=== PATIENT | male | born 1960 | race Caucasian/White ===

== ENCOUNTER 2022-08-24 14:50 | Observation (INO) ==
--- NOTE | 2022-08-24 15:22 | ED Triage Note ---
Date of Service August 24, 2022 History of Present Illness This patient was briefly evaluated while in triage. An abbreviated physical exam was performed. This patient is a 62-year-old Male with past medical history of hypercalcemia, DM Type 2, dyslipidemia, obesity, who presents to the ED for evaluation of generalized illness as a referral from oncology. Pt. had chemo a week ago Monday. Came home from work that day and "didn't feel good." Having difficulty getting around and c/o pain in ben legs from the knees down and his head. Physical Exam VITALS: Vitals are noted on the nurse's note and reviewed by myself. GENERAL: This is a 62 year old white male, in no acute distress, nondiaphoretic, well-developed well-nourished. SKIN: No obvious rashes, edema, erythema HEAD: Normocephalic atraumatic. EYES: Conjunctivae without injection, sclerae without icterus. NECK: No JVD. LUNGS: No retractions or accessory muscle use. MUSCULOSKELETAL: Normal gait. NEURO: Patient was alert and oriented to person place and time. No focal neurological deficits. Initial orders for labs and / or imaging were placed and patient was placed in the waiting area until a bed is available. Please see further documentation for the full ED course. MDM / Impression Impression Impression: Diverticulitis, Neutropenia, Hypokalemia
[2022-08-24] MEDS ORDERED: SODIUM CHLORIDE 0.9% 1000ML 1,000 ML IV ONE ×2 (15:24→17:14)
[2022-08-24] MEDS ORDERED: ONDANSETRON INJ 2 MG/ML 2 ML VIAL IV STA (15:24)
--- NOTE | 2022-08-24 16:39 | XRay Report ---
TWO VIEW CHEST CLINICAL HISTORY: Fatigue. Illness. FINDINGS: PA and lateral chest radiographs are compared to chest x-ray and chest CT dated 08/26/2018. A right internal jugular central venous infusion port is unchanged in position. The heart is enlarged . The pulmonary vasculature is not congested. Enlargement of the central pulmonary arteries suggests pulmonary artery hypertension. Emphysema and chronic interstitial thickening is similar to previous. Scarring/atelectasis is noted the left lung base. No airspace consolidation or pleural effusion is id entified. There is no pneumothorax. The skeletal structures are osteopenic. The bony thorax appears i ntact. Cholecystectomy clips are noted in the right upper quadrant. IMPRESSION: Cardiomegaly and emphysema with no active disease in the chest. ACT 112: Negative or not required by law. Electronically signed by: Elbert Campos M.D. 08/24/2022 4:37 PM
--- NOTE | 2022-08-24 17:17 | Emergency Department Note ---
Impression & Plan Diverticulitis, Neutropenia, Hypokalemia ED Provider Note NAME: NOAH LLANOS AGE: 62 SEX: M : 1960 ARRIVES VIA: Walk-In INFORMANT: Patient ED PROVIDER(S): Marco Ruiz DO CHIEF COMPLAINT: Elevated bilirubin sent in by Dr. Samayoa HPI: Patient is a 62-year-old male with past medical history of diabetes, prostate cancer, hyperkalemia that presents to the ER for elevated bilirubin. He had blood work done by his primary replenisher/oncologist and it showed an elevated bilirubin. He had chemo for the first time since 5 years ago last week. Since then he has been feeling very weak. He has cramping pain in bilateral legs. He did have some abdominal pain but that has now resolved. He has nausea but no vomiting. No dysuria, urgency, or frequency. He admits to feeling fuzzy in the head but no change in vision. No chest pain or shortness of breath. No other exacerbating or remitting factors. ROS: See above HPI for pertinent positives & negatives. A total of 10 systems reviewed and were otherwise negative. PAST MEDICAL HISTORY:See Below PAST SURGICAL HISTORY:See Below FAMILY HISTORY:See Below SOCIAL HISTORY:See Below HOME MEDICATIONS:See Below ALLERGIES:See Below VITALS:See Below PHYSICAL EXAMINATION: GENERAL: Sitting up in bed, alert, well appearing, well nourished, no distress, non-toxic EYE EXAM: normal conjunctiva. OROPHARYNX: mucous membranes are dry LUNGS: Clear to auscultation. Normal chest wall mechanics HEART: no murmurs, S1 normal and S2 normal ABDOMEN: abdomen soft, non-tender, normo-active bowel sounds, no masses, no rebound or guarding. BACK: Back is symmetrical on inspection and there is no deformity, no midline tenderness, no CVA tenderness. SKIN: no rashes and no bruising UPPER EXTREMITIES: upper extremities are grossly normal. LOWER EXTREMITIES: Flexion and extension of the hips, knees, ankles, and EHL 5/5 bilaterally. Gross sensation is intact. DPs are 2/4 bilateral. NEURO EXAM: Normal sensorium, cranial nerves II-XII grossly intact, normal speech, no gross weakness of arms, no gross weakness of legs. MEDICAL DECISION MAKING: Patient is a 62-year-old male who presents ER for the boasting complaint. IV was established blood work was obtained. Labs show mild leukopenia at 4. No significant anemia. Severe neutropenia at 420. Likely secondary to recent pauline mo. PTT was significantly elevated at greater than 139. He had his port accessed just prior to coming over here and I do favor that is the likely cause as he otherwise uses no Coumadin, heparin or Lovenox other than the heparin flushes. BMP with mild hyponatremia 133. Potassium of 2.9. PTT was discussed with Nathan Cardoso and will need to be repeated. T bili mildly elevated at 1.9. LFTs were unremarkable. Pro-[place] slightly elevated 0.6. UA was contaminated and favor nitrates are secondary to the bilirubin as opposed to a true infection. Patient was covered with Zosyn due to the diverticulitis seen on CT. He was given IV fluids. Updated bedside discussed with the hospitalist admitted for further work-up due to diverticulitis in the setting of severe neutropenia. Triage Nursing notes reviewed. Limited review of prior medical records performed Vital Signs: reviewed and remarkable for no significant abnormalities Differential diagnosis: Infection, dehydration, metabolic abnormality, hypo/hyperglycemia, electrolyte disturbance, anemia, hypoxia, cardiac sources, intracerebral event, toxicologic, neurologic, as well as other pathologies. ER treatment provided: See below Diagnostics interpreted by me: ECG: none Cardiac Monitoring: An order was placed for continuous cardiac monitoring. The monitor shows a rate of 70 with sinus rhythm. Laboratory studies: As stated above and show below. Imaging studies: CT abdomen pelvis as described above Consultation(s): Discussed with Dr. Nathan Jernigan for further evaluation Procedures: none Critical Care: None Past Med/Surg History Medical History (Updated 08/24/22 @ 21:48 by Marco Ruiz DO) Hypertension Port-A-Cath in place Prostate cancer Prostate cancer Stage 4 prostate cancer, s/p radiation and chemo Surgical History (Updated 08/28/18 @ 12:04 by Mayelin Garcia MD) History of lumbar surgery Family History Other Family history non-contributory Social History Smoking Status: Never smoker Cigarettes Per Day: Experimented at teenager then quit.; Second Hand Exposure: No; Hx Alcohol Use: Yes Alcohol type: beer Hx Substance Use: No Preferred Language: Chinese Communication Ability: Effective Chief Deputy Coroner Required: No Beliefs That Will Affect Care: None marital status: Current Living Situation: Spouse Feels Safe at Home: Yes Assistive Devices: None Allergies Allergies Allergy/AdvReac Type Severity Reaction Status Date / Time No Known Allergies Allergy Unverified 08/24/22 20:08 Home Meds Home Medications Medication Instructions Recorded Confirmed aspirin 81 mg tablet,delayed 81 mg PO DAILY 08/26/18 08/24/22 release (Ecotrin Low Strength) atenolol 25 mg tablet 25 mg PO DAILY 08/26/18 08/24/22 tamsulosin 0.4 mg capsule (Flomax) 0.4 mg PO DAILY 08/27/18 08/24/22 almotriptan malate 12.5 mg tablet 12.5 mg PO .COMPLEX PRN Migraine 08/01/19 08/24/22 Headache blood-glucose meter (Accu-Chek #1 ea 08/01/19 06/06/22 Guide Glucose Meter) hydrochlorothiazide 50 mg tablet 50 mg PO DAILY #30 tabs 08/01/19 08/24/22 lancets (Accu-Chek Fastclix Lancet #50 ea 03/22/21 06/06/22 Drum) blood sugar diagnostic (Accu-Chek 06/06/22 Guide test strips) acetaminophen 325 mg tablet 650 mg PO QID PRN Fever Or Pain 08/24/22 08/24/22 (Tylenol) dexamethasone 4 mg tablet 8 mg PO .BID/UD 08/24/22 08/24/22 insulin glargine 100 unit/mL (3 40 unit subcut TIDM 08/24/22 08/24/22 mL) subcutaneous pen (Giuseppeaglar KwcristinaPen U-100 Insulin) metformin 1,000 mg tablet 1,000 mg PO BIDM 08/24/22 08/24/22 ondansetron HCl 8 mg tablet 8 mg PO Q8H PRN Nausea 08/24/22 08/24/22 prochlorperazine maleate 10 mg 10 mg PO Q6H PRN Nausea 08/24/22 08/24/22 tablet tramadol 50 mg tablet 50 mg PO Q6H PRN Pain 08/24/22 08/24/22 Previous Rx's Medication Instructions Recorded BD Ultra-Fine Mini Pen Needle 31 #400 ea 09/21/20 gauge x 3/16" (pen needle, diabetic) semaglutide 0.25 mg or 0.5 mg (2 0.5 mg (0.4 mL) subcut Q7D #3 01/24/22 mg/1.5 mL) subcutaneous pen SYRINGES injector (Ozempic) insulin aspart U-100 100 unit/mL 140 unit (1.4 mL) subcut DAILY #9 06/10/22 (3 mL) subcutaneous pen (Novolog Boxes Flexpen U-100 Insulin aspart) Results & Data (ED) Vital Signs Vital Signs - 24 hr 08/24/22 15:21 08/24/22 16:54 08/24/22 16:54 Temperature 36.8 C Temperature Source Oral Pulse Rate 83 Pulse Rate [Apical] 84 Respiratory Rate 20 16 Respiratory Effort / Characteristics Non-Labored Spontaneous Non-Labored Spontaneous Respiratory Depth Normal Normal Respiratory Pattern Regular Blood Pressure 106/54 L Blood Pressure [Right Arm] 109/58 L Blood Pressure Mean 71 Blood Pressure Mean [Right Arm] 75 Pulse Oximetry 93 93 93 Oxygen Delivery Method Room Air Room Air Room Air Sepsis Recent Fever Within 48 Hours No Sepsis New/Unexplained Change in Mental Status N/A Sepsis Action Taken by Nursing No Action Required 08/24/22 17:47 08/24/22 18:44 08/24/22 19:01 Temperature 37 C Temperature Source Oral Pulse Rate Pulse Rate [Apical] 78 72 73 Respiratory Rate 18 16 18 Respiratory Effort / Characteristics Non-Labored Spontaneous Non-Labored Respiratory Depth Normal Normal Respiratory Pattern Regular Blood Pressure Blood Pressure [Right Arm] 122/65 110/62 96/59 L Blood Pressure Mean Blood Pressure Mean [Right Arm] 84 78 71 Pulse Oximetry 94 93 93 Oxygen Delivery Method Room Air Room Air Room Air Sepsis Recent Fever Within 48 Hours Sepsis New/Unexplained Change in Mental Status Sepsis Action Taken by Nursing Laboratory Data Result diagrams: 08/24/22 16:52 08/24/22 16:52 Lab Results 08/24/22 08/24/22 08/24/22 Range/Units 16:52 16:52 16:52 WBC 4.23 L (4.8-10.8) K/ul RBC 4.06 L (4.63-6.08) M/uL Hgb 13.9 L (14.0-18.0) g/dl Hct 37.0 L (40.1-51.0) % MCV 91.1 (80.0-100.0) fL MCH 34.2 H (25.0-34.0) pg MCHC 37.6 H (32.0-36.0) g/dL RDW Std Deviation 40.5 (36.4-46.3) fL RDW Coeff of Osvaldo 12.1 (11.5-14.5) % Plt Count 183 (130-400) K/uL MPV 12.7 H (9.4-12.4) fL Absolute Nucleated RBC 0.19 H (0-0) K/uL Nucleated RBC % (auto) 4.5 % Neutrophils % (Manual) 10 % Lymphocytes % (Manual) 33 % Reactive Lymphs % (Man) 18 % Monocytes % (Manual) 32 % Eosinophils % (Manual) 1 % Metamyelocytes % (Man) 3 % Myelocytes % (Man) 4 % Neutrophils # (Manual) 0.42 L (1.4-6.5) K/uL Total Absolute Neuts 0.42 L* (1.4-6.5) K/uL Lymphocytes # (Manual) 1.40 (1.2-3.4) K/uL Reactive Lymphs # 0.76 K/uL Total Abs Lymphocytes 2.16 (1.2-3.4) K/uL Monocytes # (Manual) 1.35 H (0.24-0.82) K/uL Eosinophils # (Manual) 0.04 (0-0.50) K/uL Metamyelocytes # (Man) 0.13 H (0-0) K/uL Myelocytes # (Manual) 0.17 H (0-0) K/uL Polychromasia 1+ PT 13.3 H (9.0-12.0) Seconds INR 1.3 H (0.9-1.1) APTT > 139.0 H* (21.0-31.0) Seconds PTT Ratio > 5.1 Sodium 133 L (136-145) mmol/L Potassium 2.9 L (3.5-5.1) mmol/L Chloride 97 L (98-107) mmol/L Carbon Dioxide 25 (21-32) mmol/L Anion Gap 11 (3-11) BUN 15 (6-23) mg/dl Creatinine 1.02 (0.6-1.4) mg/dl Est Cr Clr Drug Dosing 91.1 ml/min Est GFR ( Amer) 91.5 ml/min Est GFR (Non-Af Amer) 79.0 ml/min BUN/Creatinine Ratio 14.7 (10-20) Glucose 95 (70-99(Fasting)) mg/dl Lactate (0.4-2.0) mmol/L Calcium 8.0 L (8.5-10.1) mg/dl Magnesium 2.1 (1.7-2.4) mg/dl Total Bilirubin 1.9 H (0.2-1.0) mg/dl AST 17 (13-39) U/L ALT 15 (7-52) U/L Alkaline Phosphatase 56 (34-104) U/L Troponin I High Sens 4.5 (0-20) pg/ml Total Protein 7.3 (6.0-8.3) gm/dl Albumin 3.8 (3.4-5.0) gm/dl Globulin 3.5 (2.5-4.0) gm/dl Albumin/Globulin Ratio 1.1 (0.9-2) Lipase 18 (11-82) U/L Procalcitonin (0-0.5) ng/ml Urine Color Urine Appearance (Clear) Urine pH (4.5-7.5) Ur Specific [place] (1.000-1.030) Urine Protein (Negative) Urine Glucose (UA) (Negative) Urine Ketones (Negative) Urine Blood (Negative) Urine Nitrite (Negative) Urine Bilirubin (Negative) Urine Urobilinogen (Negative) Ur Leukocyte Esterase (Negative) Urine WBC (Auto) (0-5) /hpf Urine RBC (Auto) (0-4) /hpf U Hyaline Cast (Auto) (0-5) /lpf U Epithel Cells (Auto) (0-5) /lpf Urine Bacteria (Auto) (Negative) Ur Renal Epithelial Cell SARS-CoV-2, RNA, NAAT (NEGATIVE) 08/24/22 08/24/22 08/24/22 Range/Units 16:52 17:48 19:00 WBC (4.8-10.8) K/ul RBC (4.63-6.08) M/uL Hgb (14.0-18.0) g/dl Hct (40.1-51.0) % MCV (80.0-100.0) fL MCH (25.0-34.0) pg MCHC (32.0-36.0) g/dL RDW Std Deviation (36.4-46.3) fL RDW Coeff of Osvaldo (11.5-14.5) % Plt Count (130-400) K/uL MPV (9.4-12.4) fL Absolute Nucleated RBC (0-0) K/uL Nucleated RBC % (auto) % Neutrophils % (Manual) % Lymphocytes % (Manual) % Reactive Lymphs % (Man) % Monocytes % (Manual) % Eosinophils % (Manual) % Metamyelocytes % (Man) % Myelocytes % (Man) % Neutrophils # (Manual) (1.4-6.5) K/uL Total Absolute Neuts (1.4-6.5) K/uL Lymphocytes # (Manual) (1.2-3.4) K/uL Reactive Lymphs # K/uL Total Abs Lymphocytes (1.2-3.4) K/uL Monocytes # (Manual) (0.24-0.82) K/uL Eosinophils # (Manual) (0-0.50) K/uL Metamyelocytes # (Man) (0-0) K/uL Myelocytes # (Manual) (0-0) K/uL Polychromasia PT (9.0-12.0) Seconds INR (0.9-1.1) APTT (21.0-31.0) Seconds PTT Ratio Sodium (136-145) mmol/L Potassium (3.5-5.1) mmol/L Chloride (98-107) mmol/L Carbon Dioxide (21-32) mmol/L Anion Gap (3-11) BUN (6-23) mg/dl Creatinine (0.6-1.4) mg/dl Est Cr Clr Drug Dosing ml/min Est GFR ( Amer) ml/min Est GFR (Non-Af Amer) ml/min BUN/Creatinine Ratio (10-20) Glucose (70-99(Fasting)) mg/dl Lactate (0.4-2.0) mmol/L Calcium (8.5-10.1) mg/dl Magnesium (1.7-2.4) mg/dl Total Bilirubin (0.2-1.0) mg/dl AST (13-39) U/L ALT (7-52) U/L Alkaline Phosphatase (34-104) U/L Troponin I High Sens (0-20) pg/ml Total Protein (6.0-8.3) gm/dl Albumin (3.4-5.0) gm/dl Globulin (2.5-4.0) gm/dl Albumin/Globulin Ratio (0.9-2) Lipase (11-82) U/L Procalcitonin 0.60 H (0-0.5) ng/ml Urine Color [place] Urine Appearance Clear (Clear) Urine pH 6.5 (4.5-7.5) Ur Specific [place] 1.030 (1.000-1.030) Urine Protein 1+ H (Negative) Urine Glucose (UA) Negative (Negative) Urine Ketones Trace H (Negative) Urine Blood Negative (Negative) Urine Nitrite Positive A (Negative) Urine Bilirubin 1+ H (Negative) Urine Urobilinogen Negative (Negative) Ur Leukocyte Esterase Trace H (Negative) Urine WBC (Auto) 1-5 (0-5) /hpf Urine RBC (Auto) 5-10 H (0-4) /hpf U Hyaline Cast (Auto) 10-30 H (0-5) /lpf U Epithel Cells (Auto) >30 H (0-5) /lpf Urine Bacteria (Auto) Negative (Negative) Ur Renal Epithelial Cell Not Reportable SARS-CoV-2, RNA, NAAT NEGATIVE (NEGATIVE) 08/24/22 Range/Units 21:13 WBC (4.8-10.8) K/ul RBC (4.63-6.08) M/uL Hgb (14.0-18.0) g/dl Hct (40.1-51.0) % MCV (80.0-100.0) fL MCH (25.0-34.0) pg MCHC (32.0-36.0) g/dL RDW Std Deviation (36.4-46.3) fL RDW Coeff of Osvaldo (11.5-14.5) % Plt Count (130-400) K/uL MPV (9.4-12.4) fL Absolute Nucleated RBC (0-0) K/uL Nucleated RBC % (auto) % Neutrophils % (Manual) % Lymphocytes % (Manual) % Reactive Lymphs % (Man) % Monocytes % (Manual) % Eosinophils % (Manual) % Metamyelocytes % (Man) % Myelocytes % (Man) % Neutrophils # (Manual) (1.4-6.5) K/uL Total Absolute Neuts (1.4-6.5) K/uL Lymphocytes # (Manual) (1.2-3.4) K/uL Reactive Lymphs # K/uL Total Abs Lymphocytes (1.2-3.4) K/uL Monocytes # (Manual) (0.24-0.82) K/uL Eosinophils # (Manual) (0-0.50) K/uL Metamyelocytes # (Man) (0-0) K/uL Myelocytes # (Manual) (0-0) K/uL Polychromasia PT (9.0-12.0) Seconds INR (0.9-1.1) APTT (21.0-31.0) Seconds PTT Ratio Sodium (136-145) mmol/L Potassium (3.5-5.1) mmol/L Chloride (98-107) mmol/L Carbon Dioxide (21-32) mmol/L Anion Gap (3-11) BUN (6-23) mg/dl Creatinine (0.6-1.4) mg/dl Est Cr Clr Drug Dosing ml/min Est GFR ( Amer) ml/min Est GFR (Non-Af Amer) ml/min BUN/Creatinine Ratio (10-20) Glucose (70-99(Fasting)) mg/dl Lactate 2.1 H* (0.4-2.0) mmol/L Calcium (8.5-10.1) mg/dl Magnesium (1.7-2.4) mg/dl Total Bilirubin (0.2-1.0) mg/dl AST (13-39) U/L ALT (7-52) U/L Alkaline Phosphatase (34-104) U/L Troponin I High Sens (0-20) pg/ml Total Protein (6.0-8.3) gm/dl Albumin (3.4-5.0) gm/dl Globulin (2.5-4.0) gm/dl Albumin/Globulin Ratio (0.9-2) Lipase (11-82) U/L Procalcitonin (0-0.5) ng/ml Urine Color Urine Appearance (Clear) Urine pH (4.5-7.5) Ur Specific [place] (1.000-1.030) Urine Protein (Negative) Urine Glucose (UA) (Negative) Urine Ketones (Negative) Urine Blood (Negative) Urine Nitrite (Negative) Urine Bilirubin (Negative) Urine Urobilinogen (Negative) Ur Leukocyte Esterase (Negative) Urine WBC (Auto) (0-5) /hpf Urine RBC (Auto) (0-4) /hpf U Hyaline Cast (Auto) (0-5) /lpf U Epithel Cells (Auto) (0-5) /lpf Urine Bacteria (Auto) (Negative) Ur Renal Epithelial Cell SARS-CoV-2, RNA, NAAT (NEGATIVE) Administered Medications Discontinued Medications Sodium Chloride (Nss 1000ml) 1,000 mls @ 999 mls/hr IV .Q1H1M ONE Stop: 08/24/22 16:24 Last Infusion: 08/24/22 18:14 Dose: 0 mls/hr Documented By: Admin: 08/24/22 16:55 Dose: 999 mls/hr Documented By: CRUZ Sodium Chloride (Nss 1000ml) 1,000 mls @ 999 mls/hr IV .Q1H1M ONE Stop: 08/24/22 18:14 Last Infusion: 08/24/22 20:03 Dose: 0 mls/hr Documented By: Admin: 08/24/22 18:14 Dose: 999 mls/hr Documented By: CRUZ Piperacillin Sod/Tazobactam Sod (Zosyn) 4.5 gm in 120 mls @ 240 mls/hr IV NOW ONE Stop: 08/24/22 19:18 Last Infusion: 08/24/22 20:03 Dose: 0 mls/hr Documented By: Admin: 08/24/22 19:00 Dose: 240 mls/hr Documented By: KT Albumin Human (Albumin 25% 100 Ml) 25 gm in 100 mls @ 50 mls/hr IV ONE ONE Stop: 08/24/22 21:26 Last Admin: 08/24/22 20:37 Dose: 50 mls/hr Documented By: VINICIO Ioversol (Ioversol 350 Mg 100ml Prefilled Syringe) 95 ml IV ONCE ONE Stop: 08/24/22 18:11 Last Admin: 08/24/22 18:10 Dose: 95 ml Documented By: ELMA Ondansetron HCl (Ondansetron Inj 2 Mg/Ml 2 Ml Vial) 4 mg IV NOW STA Stop: 08/24/22 15:25 Last Admin: 08/24/22 16:55 Dose: 4 mg Documented By: CRUZ Potassium Chloride (Potassium Chloride Crtab 20 Meq Tabcr) 40 meq PO NOW STA Stop: 08/24/22 19:28 Last Admin: 08/24/22 20:36 Dose: 40 meq Documented By: KT Imaging Data Radiologist's Impression: Chest X-Ray 08/24/22 15:23 TWO VIEW CHEST CLINICAL HISTORY: Fatigue. Illness. FINDINGS: PA and lateral chest radiographs are compared to chest x-ray and chest CT dated 08/26/2018. A right internal jugular central venous infusion port is unchanged in position. The heart is enlarged. The pulmonary vasculature is not congested. Enlargement of the central pulmonary arteries suggests pulmonary artery hypertension. Emphysema and chronic interstitial thickening is similar to previous. Scarring/atelectasis is noted the left lung base. No airspace consolidation or pleural effusion is identified. There is no pneumothorax. The skeletal structures are osteopenic. The bony thorax appears intact. Cholecystectomy clips are noted in the right upper quadrant. IMPRESSION: Cardiomegaly and emphysema with no active disease in the chest. ACT 112: Negative or not required by law. Electronically signed by: Elbert Campos M.D. 08/24/2022 4:37 PM Abdomen/Pelvis CT 08/24/22 17:14 CT SCAN OF THE ABDOMEN AND PELVIS WITH IV CONTRAST CLINICAL HISTORY: Elevated bilirubin. Prostate cancer. COMPARISON STUDY: MRCP dated 08/27/2018. Abdominal radiographs dated 08/26/2018. TECHNIQUE: Following the IV administration of 95 cc of Optiray 350, CT scan of the abdomen and pelvis is performed from the lung bases to the proximal femora. Images are reviewed in the axial, sagittal, and coronal planes. IV contrast was administered without complication. A dose lowering technique was utilized adhering to the principles of ALARA. CT DOSE: 2294.66 mGy.cm FINDINGS: Lung bases: The tip of a central venous infusion port terminates at the cavoatrial junction. The heart is normal in size and without pericardial effusion. The lung bases are clear noting dependent atelectasis. Gynecomastia is noted. Liver: The contrast-enhanced liver is mildly enlarged measuring 19 cm in length. The liver demonstrates diffusely diminished attenuation indicating hepatic steatosis. There is no intrahepatic biliary ductal dilatation. The hepatic veins and portal veins are patent. A 2.5 cm cyst is noted in the left lobe. Additional subcentimeter hepatic hypodensities also likely represent cysts but are too small for definitive characterization. Gallbladder: Surgically absent noting clips in the gallbladder fossa. Spleen: The spleen is mildly enlarged measuring 15.8 cm in length. The splenic vein is patent. There are perigastric and perisplenic varices with evidence of a splenorenal shunt. Pancreas: Unremarkable. Adrenal glands: Unremarkable. Kidneys: The contrast enhanced kidneys are normal in size and without hydronephrosis. The kidneys enhance symmetrically. Abdominal vasculature: The abdominal aorta is normal in course and caliber noting scattered foci of atherosclerotic calcification. Bowel: There is mild to moderate colonic diverticulosis. There is wall thickening with pericolonic inflammation and fluid seen involving the proximal sigmoid. This is consistent with acute diverticulitis. No organized fluid collection is seen to suggest abscess. There is no bowel obstruction. The appendix is well-visualized and normal. Peritoneum: There is no intraperitoneal free air or abdominal ascites. There is a fat-containing umbilical hernia. Lymphadenopathy: There are prominent low attenuation and calcified bilateral iliac chain/pelvic sidewall lymph nodes. A node along the right pelvic sidewall on image #459 measures 2.3 x 1.2 cm. A left external iliac chain node on image # 444 measures 1.5 cm. Pelvic viscera: The prostate gland is diminutive an heterogeneous. The bladder is decompressed comment wall appears thickened/trabeculated indicating chronic outlet obstruction. The seminal vesicles are normal as visualized. 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 Lesions are seen within the left anterior 6th rib on image #79 and throughout the lumbar spine, pelvis, and in the proximal femora. There is a chronic superior endplate compression deformity of L4. Spondylotic and po stoperative change is seen throughout The lumbar spine. IMPRESSION: 1. Mild to moderate colonic diverticulosis with evidence of acute sigmoid diverticulitis. 2. No intraperitoneal free air is identified and there is no organized fluid collection to suggest abscess. 3. Hepatic steatosis. 4. 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 5. Splenomegaly. 6. Mildly enlarged pelvic sidewall and iliac chain lymph nodes show low- attenuation and internal calcifications. These may represent treated metastases. Correlate with the patient's oncological history. 7. There are perigastric and perisplenic varices with evidence of a splenorenal shunt. 8. Additional findings as above. ACT 112: Negative or not required by law. Electronically signed by: Elbert Campos M.D. 08/24/2022 6:[address] 08/24/22 17:14 CT SCAN OF THE BRAIN WITHOUT IV CONTRAST CLINICAL HISTORY: Headache. COMPARISON STUDY: No priors. TECHNIQUE: Unenhanced axial CT scan of the brain is performed from the vertex to the skull base. A dose lowering technique was utilized adhering to the principles of ALARA. FINDINGS: Brain parenchyma: There is age-related involutional change noting minimal microangiopathic disease. There is no hemorrhage, mass effect, or evidence of acute territorial ischemia by CT criteria. Ramirez-white matter differentiation is preserved. No extra-axial fluid collection is seen. Ventricles, sulci, cisterns: Prominent secondary to involutional change. Intracranial vasculature: There is atherosclerotic calcification of the cavernous carotid and vertebral arteries. Calvarium: Unremarkable. Sinuses and mastoids: There is mild mucosal thickening within the left maxillary antrum and the ethmoid sinuses. Fluid is seen within the sphenoid sinuses. There are small mastoid effusions. Orbits: The bony orbits are grossly intact. IMPRESSION: No acute intracranial abnormality. ACT 112: Negative or not required by law. Electronically signed by: Elbert Campos M.D. 08/24/2022 6:17 PM Discharge Plan Visit Data Chief Complaint: Referred by Doctor Stated Complaint: PAIN, NO APPETITE, DR. SAMAYOA SENT ED Provider: Marco Ruiz Discharge Problem: Diverticulitis, Neutropenia, Hypokalemia Forms Stand Alone Forms: [facility] [employer] [place] Prescriptions Prescriptions: No Action insulin aspart U-100 [Novolog Flexpen U-100 Insulin] 100 unit/mL (3 mL) insuli n pen 140 unit SQ DAILY Qty: 9 3RF Rx Instructions: INJECT 50 UNITS UNDER THE SKIN, TWO TIMES DAILY WITH MORNING AND EVENING MEALS. INJECT 70 UNITSWITH EACH DEXAMETHASONE DOSE ( TWICE DAILY FOR THREE DAYS WITH CHEMO). (DME) blood-glucose meter [Accu-Chek Guide Glucose Meter] misc See Dose Instructions .ROUTE .MEDSUPPLY Qty: 1 Rx Instructions: As directed almotriptan malate 12.5 mg tablet 12.5 mg PO .COMPLEX PRN (Reason: Migraine Headache) Label Comments: 12.5 mg PO Take at onset of migraine. May repeat in 2 hours. MAX 2 DOSES/24 HOURS/ NO MORE THEN 3 DAYS PER WEEK; Rx Instructions: 12.5 mg PO Take at onset of migraine. May repeat in 2 hours. MAX 2 DOSES/24 HOURS/ NO MORE THEN 3 DAYS PER WEEK; hydrochlorothiazide 50 mg tablet 50 mg PO DAILY Qty: 30 (DME) lancets [Accu-Chek Fastclix Lancet Drum] Misc See Rx Instructions .ROUTE .MEDSUPPLY Qty: 50 Rx Instructions: Test blood sugars 4 times a day Ozempic 0.25 mg or 0.5 mg(2 mg/1.5 mL) pen injector 0.5 mg subcut Q7D Qty: 3 3RF Rx Instructions: TAKE THIS MED EVERY MONDAY. (DME) pen needle, diabetic [BD Ultra-Fine Mini Pen Needle] 31 gauge x 3/16" needle See Rx Instructions .ROUTE .MEDSUPPLY Qty: 400 3RF Rx Instructions: test 4 times daily (DME) Accu-Chek Guide test strips Strip See Rx Instructions .ROUTE .MEDSUPPLY Rx Instructions: Test blood sugars 2 times a day atenolol 25 mg tablet 25 mg PO DAILY aspirin [Ecotrin Low Strength] 81 mg Tablet,Delayed Release (Dr/Ec) 81 mg PO DAILY tamsulosin [Flomax] 0.4 mg Capsule 0.4 mg PO DAILY acetaminophen [Tylenol] 325 mg Tablet 650 mg PO QID PRN (Reason: Fever Or Pain) tramadol 50 mg tablet 50 mg PO Q6H PRN (Reason: Pain) dexamethasone 4 mg tablet 8 mg PO .BID/UD Rx Instructions: TAKE 8MG (TWO TABS) TWICE A DAY FOR 3 DAYS STARTING THE DAY BEFORE CHEMOTHERAPY. metformin 1,000 mg tablet 1,000 mg PO BIDM ondansetron HCl 8 mg tablet 8 mg PO Q8H PRN (Reason: Nausea) prochlorperazine maleate 10 mg tablet 10 mg PO Q6H PRN (Reason: Nausea) insulin glargine [Basaglar KwikPen U-100 Insulin] 100 unit/mL (3 mL) insulin pen 40 unit SUBCUT TIDM Rx Instructions: Inject 40 UNITS WITH ALL MEALS. Referrals Referrals: Stephen Posey MD [Primary Care Provider] -
[2022-08-24 17:36] LABS: Albumin Globulin Ratio 1.1 (0.9-2); Albumin Level 3.8 gm/dl (3.4-5.0); BUN Creatinine Ratio 14.7 (10-20); Bilirubin,Total 1.9 mg/dl (0.2-1.0); Creatinine Clr Calc Pharmacy 91.1 ml/min; Est GFR (African American) 91.5 ml/min; Globulin 3.5 gm/dl (2.5-4.0); Magnesium 2.1 mg/dl (1.7-2.4); Potassium 2.9 mmol/L (3.5-5.1); Total Protein 7.3 gm/dl (6.0-8.3)
[2022-08-24 17:40] LABS: INR 1.3 (0.9-1.1); Partial Thromboplastin Ratio > 5.1; Prothrombin Time 13.3 Seconds (9.0-12.0)
[2022-08-24 17:41] LABS: Troponin I High Sensitivity 4.5 pg/ml (0-20)
[2022-08-24 17:43] LABS: Partial Thromboplastin Time > 139.0 Seconds (21.0-31.0)
[2022-08-24 18:01] LABS: Appearance Urine Clear (Clear); Bacteria Urine Automated Negative (Negative); Blood Urine Negative (Negative); Color Urine Orange; Epithelial Cell Urine Auto >30 /lpf (0-5); Glucose Urine UA Negative (Negative); Ketones Urine Trace (Negative); Leukocyte Esterase Urine Trace (Negative); Nitrite Urine Positive (Negative); Protein Urine 1+ (Negative); Urobilinogen Urine Negative (Negative); pH Urine 6.5 (4.5-7.5)
[2022-08-24 18:02] LABS: Bilirubin Urine 1+ (Negative)
[2022-08-24] MEDS ORDERED: IOVERSOL 350 MG 100mL Prefilled Syringe IV ONE (18:10)
[2022-08-24 18:17] LABS: Hemoglobin 13.9 g/dl (14.0-18.0); Mean Corpuscular Hemoglobin 34.2 pg (25.0-34.0); Mean Corpuscular Hgb Conc 37.6 g/dL (32.0-36.0); Mean Corpuscular Volume 91.1 fL (80.0-100.0); Mean Platelet Volume 12.7 fL (9.4-12.4); Nucleated RBC # (auto) 0.19 K/uL (0-0); Nucleated RBC % (auto) 4.5 %; Platelet Count 183 K/uL (130-400); RDW Coefficient of Variation 12.1 % (11.5-14.5); RDW Standard Deviation 40.5 fL (36.4-46.3); Red Blood Count 4.06 M/uL (4.63-6.08); White Blood Count 4.23 K/ul (4.8-10.8)
[2022-08-24 18:19] LABS: ALC (manual) 2.16 K/uL (1.2-3.4); ANC (manual) 0.42 K/uL (1.4-6.5); Eosinophils # (manual) 0.04 K/uL (0-0.50); Eosinophils % (manual) 1 %; Lymphocytes % (manual) 33 %; Metamyelocytes # (manual) 0.13 K/uL (0-0); Metamyelocytes % (manual) 3 %; Monocytes # (manual) 1.35 K/uL (0.24-0.82); Monocytes % (manual) 32 %; Myelocytes # (manual) 0.17 K/uL (0-0); Myelocytes % (manual) 4 %; Neutrophils # (manual) 0.42 K/uL (1.4-6.5); Neutrophils % (manual) 10 %; Polychromasia 1+; Reactive Lymphocytes # (manual) 0.76 K/uL; Reactive Lymphocytes % (manual) 18 %
--- NOTE | 2022-08-24 18:21 | CT Scan Report ---
CT SCAN OF THE BRAIN WITHOUT IV CONTRAST CLINICAL HISTORY: Headache. COMPARISON STUDY: No priors. TECHNIQUE: Unenhanced axial CT scan of the brain is performed from the vertex to the skull base. A do se lowering technique was utilized adhering to the principles of ALARA. FINDINGS: Brain parenchyma: There is age-related involutional change noting minimal microangiopathic disease. T here is no hemorrhage, mass effect, or evidence of acute territorial ischemia by CT criteria. Ramirez-wh ite matter differentiation is preserved. No extra-axial fluid collection is seen. Ventricles, sulci, cisterns: Prominent secondary to involutional change. Intracranial vasculature: There is atherosclerotic calcification of the cavernous carotid and vertebr al arteries. Calvarium: Unremarkable. Sinuses and mastoids: There is mild mucosal thickening within the left maxillary antrum and the ethmo id sinuses. Fluid is seen within the sphenoid sinuses. There are small mastoid effusions. Orbits: The bony orbits are grossly intact. IMPRESSION: No acute intracranial abnormality. ACT 112: Negative or not required by law. Electronically signed by: Elbert Campos M.D. 08/24/2022 6:17 PM
--- NOTE | 2022-08-24 18:38 | CT Scan Report ---
CT SCAN OF THE ABDOMEN AND PELVIS WITH IV CONTRAST CLINICAL HISTORY: Elevated bilirubin. Prostate cancer. COMPARISON STUDY: MRCP dated 08/27/2018. Abdominal radiographs dated 08/26/2018. TECHNIQUE: Following the IV administration of 95 cc of Optiray 350, CT scan of the abdomen and pelvi s is performed from the lung bases to the proximal femora. Images are reviewed in the axial, sagittal , and coronal planes. IV contrast was administered without complication. A dose lowering technique wa s utilized adhering to the principles of ALARA. CT DOSE: 2294.66 mGy.cm FINDINGS: Lung bases: The tip of a central venous infusion port terminates at the cavoatrial junction. The hear t is normal in size and without pericardial effusion. The lung bases are clear noting dependent atele ctasis. Gynecomastia is noted. Liver: The contrast-enhanced liver is mildly enlarged measuring 19 cm in length. The liver demonstrat es diffusely diminished attenuation indicating hepatic steatosis. There is no intrahepatic biliary du ctal dilatation. The hepatic veins and portal veins are patent. A 2.5 cm cyst is noted in the left lo be. Additional subcentimeter hepatic hypodensities also likely represent cysts but are too small for definitive characterization. Gallbladder: Surgically absent noting clips in the gallbladder fossa. Spleen: The spleen is mildly enlarged measuring 15.8 cm in length. The splenic vein is patent. There are perigastric and perisplenic varices with evidence of a splenorenal shunt. Pancreas: Unremarkable. Adrenal glands: Unremarkable. Kidneys: The contrast enhanced kidneys are normal in size and without hydronephrosis. The kidneys enh ance symmetrically. Abdominal vasculature: The abdominal aorta is normal in course and caliber noting scattered foci of a therosclerotic calcification. Bowel: There is mild to moderate colonic diverticulosis. There is wall thickening with pericolonic in flammation and fluid seen involving the proximal sigmoid. This is consistent with acute diverticuliti s. No organized fluid collection is seen to suggest abscess. There is no bowel obstruction. The appen bo is well-visualized and normal. Peritoneum: There is no intraperitoneal free air or abdominal ascites. There is a fat-containing umbi lical hernia. Lymphadenopathy: There are prominent low attenuation and calcified bilateral iliac chain/pelvic sidew all lymph nodes. A node along the right pelvic sidewall on image #459 measures 2.3 x 1.2 cm. A left e xternal iliac chain node on image #444 measures 1.5 cm. Pelvic viscera: The prostate gland is diminutive an heterogeneous. The bladder is decompressed commen t wall appears thickened/trabeculated indicating chronic outlet obstruction. The seminal vesicles are normal as visualized. 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 Lesions are see n within the left anterior 6th rib on image #79 and throughout the lumbar spine, pelvis, and in the p roximal femora. There is a chronic superior endplate compression deformity of L4. Spondylotic and pos toperative change is seen throughout The lumbar spine. IMPRESSION: 1. Mild to moderate colonic diverticulosis with evidence of acute sigmoid diverticulitis. 2. No intraperitoneal free air is identified and there is no organized fluid collection to suggest ab scess. 3. Hepatic steatosis. 4. 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 5. Splenomegaly. 6. Mildly enlarged pelvic sidewall and iliac chain lymph nodes show low-attenuation and internal calc ifications. These may represent treated metastases. Correlate with the patient's oncological history. 7. There are perigastric and perisplenic varices with evidence of a splenorenal shunt. 8. Additional findings as above. ACT 112: Negative or not required by law. Electronically signed by: Elbert Campos M.D. 08/24/2022 6:35 PM
[2022-08-24] MEDS ORDERED: PIPERACILLIN/TAZOBACTAM 4.5 GM/120 ML BAG IV ONE (18:49)
[2022-08-24] MEDS ORDERED: POTASSIUM CHLORIDE CRTAB 20 MEQ TABCR PO STA (19:27)
[2022-08-24] MEDS ORDERED: ALBUMIN 25% 100 mL 25 GM/100 ML VIAL IV ONE (19:27)
--- NOTE | 2022-08-24 20:27 | History & Physical Report ---
Date of Service August 24, 2022 Assessment & Plan (1) Diverticulitis: Plan: Immunocompromised patient hx metastatic prostate cancer status post decompressive surgery ongoing chemotherapy hypertension, BP on the lower side DM2 insulin requiring, well-controlled as of recent hemoglobin A1c of 6.9 last June 2022 chronic anemia, hemoglobin at baseline Hypokalemia secondary to diarrhea, home diuretic Rx Elevated PTT, possibly from IV heparin flush administered through A port during oncology appointment this morning. past tobacco abuse Medical telemetry given borderline BP Zosyn Clear liquids, GI consult Re: Acute diverticulitis Hold home diuretic for now until patient euvolemic Basal bolus insulin adjusted for clear liquid diet, ISS BG goal 1 10-1 40, carb count coverage Replace potassium Recheck APTT in the morning. DVT prophylaxis. Lovenox subcu once aPTT within normal limits Full code History of Present Illness Chief Complaint: Diarrhea, weakness Primary Care Provider: Stephen Posey MD History obtained from patient, family, and records. Medical history significant for hypertension, hyperlipidemia, DM2 insulin requiring, metastatic prostate cancer status post decompressive surgery ongoing chemotherapy, chronic anemia (baseline hemoglobin of 13), past tobacco abuse. Last confinement August 2018 for biliary colic status postcholecystectomy. 2 weeks history of watery diarrhea symptoms without abdominal pain. Increasing weakness, no chest pain, no shortness of breath. No recent antibiotic Rx. Chemotherapy medicine about 2 weeks ago. Poor appetite. Serum potassium of 2.9, total bilirubin of 2.2 on outpatient blood work this morning. Patient directed to ER by outpatient providers. Zosyn administered at the ER for diverticulitis. No prior episodes of diverticulitis as per patient account. No previous colonoscopies as per patient. Medical History as above Surgical History : Cholecystectomy, multiple back surgeries Family History : Prostate cancer Personal/Social history : Past tobacco abuse, occasional EtOH intake, [employer] employee Allergies Allergy/AdvReac Type Severity Reaction Status Date / Time No Known Allergies Allergy Unverified 08/24/22 20:08 Home Medications Medication Instructions Recorded Confirmed Type aspirin 81 mg tablet,delayed 81 mg PO DAILY 08/26/18 08/24/22 History release (Ecotrin Low Strength) atenolol 25 mg tablet 25 mg PO DAILY 08/26/18 08/24/22 History tamsulosin 0.4 mg capsule (Flomax) 0.4 mg PO DAILY 08/27/18 08/24/22 History almotriptan malate 12.5 mg tablet 12.5 mg PO .COMPLEX PRN Migraine 08/01/19 08/24/22 History Headache blood-glucose meter (Accu-Chek #1 ea 08/01/19 06/06/22 History Guide Glucose Meter) hydrochlorothiazide 50 mg tablet 50 mg PO DAILY #30 tabs 08/01/19 08/24/22 History BD Ultra-Fine Mini Pen Needle 31 #400 ea 09/21/20 06/06/22 Rx gauge x 3/16" (pen needle, diabetic) lancets (Accu-Chek Fastclix Lancet #50 ea 03/22/21 06/06/22 History Drum) semaglutide 0.25 mg or 0.5 mg (2 0.5 mg (0.4 mL) subcut Q7D #3 01/24/22 08/24/22 Rx mg/1.5 mL) subcutaneous pen SYRINGES injector ([employer]) blood sugar diagnostic (Accu-Chek 06/06/22 History Guide test strips) insulin aspart U-100 100 unit/mL 140 unit (1.4 mL) subcut DAILY #9 06/10/22 08/24/22 Rx (3 mL) subcutaneous pen (Novolog Boxes Flexpen U-100 Insulin aspart) acetaminophen 325 mg tablet 650 mg PO QID PRN Fever Or Pain 08/24/22 08/24/22 History (Tylenol) dexamethasone 4 mg tablet 8 mg PO .BID/UD 08/24/22 08/24/22 History insulin glargine 100 unit/mL (3 40 unit subcut TIDM 08/24/22 08/24/22 History mL) subcutaneous pen (Basaglar KwikPen U-100 Insulin) metformin 1,000 mg tablet 1,000 mg PO BIDM 08/24/22 08/24/22 History ondansetron HCl 8 mg tablet 8 mg PO Q8H PRN Nausea 08/24/22 08/24/22 History prochlorperazine maleate 10 mg 10 mg PO Q6H PRN Nausea 08/24/22 08/24/22 History tablet tramadol 50 mg tablet 50 mg PO Q6H PRN Pain 08/24/22 08/24/22 History Past Med/Surg History Medical History (Updated 08/24/22 @ 21:48 by Marco Ruiz DO) Hypertension Port-A-Cath in place Prostate cancer Prostate cancer Stage 4 prostate cancer, s/p radiation and chemo Surgical History (Updated 08/28/18 @ 12:04 by Mayelin Garcia MD) History of lumbar surgery Family History Other Family history non-contributory Social History Smoking Status: Never smoker Cigarettes Per Day: Experimented at teenager then quit.; Second Hand Exposure: No; Hx Alcohol Use: Yes Alcohol type: beer Hx Substance Use: No Preferred Language: Russian Communication Ability: Effective Manager Resort Required: No Beliefs That Will Affect Care: None marital status: Current Living Situation: Spouse Feels Safe at Home: Yes Assistive Devices: None Review of Systems Review of Systems: As per HPI, all other systems reviewed and negative Physical Exam Physical Exam: GENERAL: Comfortable, slightly anxious, obese, no respiratory distress SKIN: Normal color, warm HEENT: [place] palpebral conjunctivae, no ptosis, dry buccal mucosa NECK : Supple, no tenderness CHEST : CTA, no tenderness HEART : RRR, no obvious murmurs ABDOMEN: Some distention, nontender EXTREMITIES : No LE swelling/tenderness, no other conspicuous deformities noted NEUROLOGIC : Coherent, no facial asymmetry, no other gross focality Results & Data Results & Data ([facility]) Vital Signs (Past 12 Hours) Vital Signs Temp Pulse Pulse Resp BP BP Pulse Ox 08/24/22 19:01 37 C 73 18 96/59 L 93 08/24/22 18:44 72 16 110/62 93 08/24/22 17:47 78 18 122/65 94 08/24/22 16:54 93 08/24/22 16:54 84 16 109/58 L 93 08/24/22 15:21 36.8 C 83 20 106/54 L 93 O2 Del Method 08/24/22 19:01 Room Air 08/24/22 18:44 Room Air 08/24/22 17:47 Room Air 08/24/22 16:54 Room Air 08/24/22 16:54 Room Air 08/24/22 15:21 Room Air Laboratory Results Laboratory Results WBC 4.23 K/ul (4.8-10.8) L 08/24/22 16:52 RBC 4.06 M/uL (4.63-6.08) L 08/24/22 16:52 Hgb 13.9 g/dl (14.0-18.0) L 08/24/22 16:52 Hct 37.0 % (40.1-51.0) L 08/24/22 16:52 MCV 91.1 fL (80.0-100.0) 08/24/22 16:52 MCH 34.2 pg (25.0-34.0) H 08/24/22 16:52 MCHC 37.6 g/dL (32.0-36.0) H 08/24/22 16:52 RDW Std Deviation 40.5 fL (36.4-46.3) 08/24/22 16:52 RDW Coeff of Osvaldo 12.1 % (11.5-14.5) 08/24/22 16:52 Plt Count 183 K/uL (130-400) 08/24/22 16:52 MPV 12.7 fL (9.4-12.4) H 08/24/22 16:52 Absolute Nucleated RBC 0.19 K/uL (0-0) H 08/24/22 16:52 Nucleated RBC % (auto) 4.5 % 08/24/22 16:52 Neutrophils % (Manual) 10 % 08/24/22 16:52 Lymphocytes % (Manual) 33 % 08/24/22 16:52 Reactive Lymphs % (Man) 18 % 08/24/22 16:52 Monocytes % (Manual) 32 % 08/24/22 16:52 Eosinophils % (Manual) 1 % 08/24/22 16:52 Metamyelocytes % (Man) 3 % 08/24/22 16:52 Myelocytes % (Man) 4 % 08/24/22 16:52 Neutrophils # (Manual) 0.42 K/uL (1.4-6.5) L 08/24/22 16:52 Total Absolute Neuts 0.42 K/uL (1.4-6.5) L* 08/24/22 16:52 Lymphocytes # (Manual) 1.40 K/uL (1.2-3.4) 08/24/22 16:52 Reactive Lymphs # 0.76 K/uL 08/24/22 16:52 Total Abs Lymphocytes 2.16 K/uL (1.2-3.4) 08/24/22 16:52 Monocytes # (Manual) 1.35 K/uL (0.24-0.82) H 08/24/22 16:52 Eosinophils # (Manual) 0.04 K/uL (0-0.50) 08/24/22 16:52 Metamyelocytes # (Man) 0.13 K/uL (0-0) H 08/24/22 16:52 Myelocytes # (Manual) 0.17 K/uL (0-0) H 08/24/22 16:52 Polychromasia 1+ 08/24/22 16:52 PT 13.3 Seconds (9.0-12.0) H 08/24/22 16:52 INR 1.3 (0.9-1.1) H 08/24/22 16:52 APTT > 139.0 Seconds (21.0-31.0) H* 08/24/22 16:52 PTT Ratio > 5.1 08/24/22 16:52 Sodium 133 mmol/L (136-145) L 08/24/22 16:52 Potassium 2.9 mmol/L (3.5-5.1) L 08/24/22 16:52 Chloride 97 mmol/L (98-107) L 08/24/22 16:52 Carbon Dioxide 25 mmol/L (21-32) 08/24/22 16:52 Anion Gap 11 (3-11) 08/24/22 16:52 BUN 15 mg/dl (6-23) 08/24/22 16:52 Creatinine 1.02 mg/dl (0.6-1.4) 08/24/22 16:52 Est Cr Clr Drug Dosing 91.1 ml/min 08/24/22 16:52 Est GFR ( Amer) 91.5 ml/min 08/24/22 16:52 Est GFR (Non-Af Amer) 79.0 ml/min 08/24/22 16:52 BUN/Creatinine Ratio 14.7 (10-20) 08/24/22 16:52 Glucose 95 mg/dl (70-99(Fasting)) 08/24/22 16:52 Calcium 8.0 mg/dl (8.5-10.1) L 08/24/22 16:52 Magnesium 2.1 mg/dl (1.7-2.4) 08/24/22 16:52 Total Bilirubin 1.9 mg/dl (0.2-1.0) H 08/24/22 16:52 AST 17 U/L (13-39) 08/24/22 16:52 ALT 15 U/L (7-52) 08/24/22 16:52 Alkaline Phosphatase 56 U/L (34-104) 08/24/22 16:52 Troponin I High Sens 4.5 pg/ml (0-20) 08/24/22 16:52 Total Protein 7.3 gm/dl (6.0-8.3) 08/24/22 16:52 Albumin 3.8 gm/dl (3.4-5.0) 08/24/22 16:52 Globulin 3.5 gm/dl (2.5-4.0) 08/24/22 16:52 Albumin/Globulin Ratio 1.1 (0.9-2) 08/24/22 16:52 Lipase 18 U/L (11-82) 08/24/22 16:52 Procalcitonin 0.60 ng/ml (0-0.5) H 08/24/22 16:52 Urine Color [place] 08/24/22 17:48 Urine Appearance Clear (Clear) 08/24/22 17:48 Urine pH 6.5 (4.5-7.5) 08/24/22 17:48 Ur Specific [place] 1.030 (1.000-1.030) 08/24/22 17:48 Urine Protein 1+ (Negative) H 08/24/22 17:48 Urine Glucose (UA) Negative (Negative) 08/24/22 17:48 Urine Ketones Trace (Negative) H 08/24/22 17:48 Urine Blood Negative (Negative) 08/24/22 17:48 Urine Nitrite Positive (Negative) A 08/24/22 17:48 Urine Bilirubin 1+ (Negative) H 08/24/22 17:48 Urine Urobilinogen Negative (Negative) 08/24/22 17:48 Ur Leukocyte Esterase Trace (Negative) H 08/24/22 17:48 Urine WBC (Auto) 1-5 /hpf (0-5) 08/24/22 17:48 Urine RBC (Auto) 5-10 /hpf (0-4) H 08/24/22 17:48 U Hyaline Cast (Auto) 10-30 /lpf (0-5) H 08/24/22 17:48 U Epithel Cells (Auto) >30 /lpf (0-5) H 08/24/22 17:48 Urine Bacteria (Auto) Negative (Negative) 08/24/22 17:48 Ur Renal Epithelial Cell Not Reportable 08/24/22 17:48 SARS-CoV-2, RNA, NAAT NEGATIVE (NEGATIVE) 08/24/22 19:00 Impressions Chest X-Ray 08/24/22 15:23 TWO VIEW CHEST CLINICAL HISTORY: Fatigue. Illness. FINDINGS: PA and lateral chest radiographs are compared to chest x-ray and chest CT dated 08/26/2018. A right internal jugular central venous infusion port is unchanged in position. The heart is enlarged. The pulmonary vasculature is not congested. Enlargement of the central pulmonary arteries suggests pulmonary artery hypertension. Emphysema and chronic interstitial thickening is similar to previous. Scarring/atelectasis is noted the left lung base. No airspace co nsolidation or pleural effusion is identified. There is no pneumothorax. The skeletal structures are osteopenic. The bony thorax appears intact. Cholecystectomy clips are noted in the right upper quadrant. IMPRESSION: Cardiomegaly and emphysema with no active disease in the chest. ACT 112: Negative or not required by law. Electronically signed by: Elbert Campos M.D. 08/24/2022 4:37 PM Abdomen/Pelvis CT 08/24/22 17:14 CT SCAN OF THE ABDOMEN AND PELVIS WITH IV CONTRAST CLINICAL HISTORY: Elevated bilirubin. Prostate cancer. COMPARISON STUDY: MRCP dated 08/27/2018. Abdominal radiographs dated 08/26/2018. TECHNIQUE: Following the IV administration of 95 cc of Optiray 350, CT scan of the abdomen and pelvis is performed from the lung bases to the proximal femora. Images are reviewed in the axial, sagittal, and coronal planes. IV contrast was administered without complication. A dose lowering technique was utilized adhering to the principles of ALARA. CT DOSE: 2294.66 mGy.cm FINDINGS: Lung bases: The tip of a central venous infusion port terminates at the cavoatrial junction. The heart is normal in size and without pericardial effu sheryl. The lung bases are clear noting dependent atelectasis. Gynecomastia is noted. Liver: The contrast-enhanced liver is mildly enlarged measuring 19 cm in length. The liver demonstrates diffusely diminished attenuation indicating hepatic steatosis. There is no intrahepatic biliary ductal dilatation. The hepatic veins and portal veins are patent. A 2.5 cm cyst is noted in the left lobe. Additional subcentimeter hepatic hypodensities also likely represent cysts but are too small for definitive characterization. Gallbladder: Surgically absent noting clips in the gallbladder fossa. Spleen: The spleen is mildly enlarged measuring 15.8 cm in length. The splenic vein is patent. There are perigastric and perisplenic varices with evidence of a splenorenal shunt. Pancreas: Unremarkable. Adrenal glands: Unremarkable. Kidneys: The contrast enhanced kidneys are normal in size and without hydronephrosis. The kidneys enhance symmetrically. Abdominal vasculature: The abdominal aorta is normal in course and caliber noting scattered foci of atherosclerotic calcification. Bowel: There is mild to moderate colonic diverticulosis. There is wall thickening with pericolonic inflammation and fluid seen involving the proximal sigmoid. This is consistent with acute diverticulitis. No organized fluid collection is seen to suggest abscess. There is no bowel obstruction. The appendix is well-visualized and normal. Peritoneum: There is no intraperitoneal free air or abdominal ascites. There is a fat-containing umbilical hernia. Lymphadenopathy: There are prominent low attenuation and calcified bilateral iliac chain/pelvic sidewall lymph nodes. A node along the right pelvic sidewall on image #459 measures 2.3 x 1.2 cm. A left external iliac chain node on image #444 measures 1.5 cm. Pelvic viscera: The prostate gland is diminutive an heterogeneous. The bladder is decompressed comment wall appears thickened/trabeculated indicating chronic outlet obstruction. The seminal vesicles are normal as visualized. 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 Lesions are seen within the left anterior 6th rib on image #79 and throughout the lumbar spine, pelvis, and in the proximal femora. There is a chronic superior endplate compression deformity of L4. Spondylotic and postoperative change is seen throughout The lumbar spine. IMPRESSION: 1. Mild to moderate colonic diverticulosis with evidence of acute sigmoid diverticulitis. 2. No intraperitoneal free air is identified and there is no organized fluid collection to suggest abscess. 3. Hepatic steatosis. 4. 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 5. Splenomegaly. 6. Mildly enlarged pelvic sidewall and iliac chain lymph nodes show low-atte nuation and internal calcifications. These may represent treated metastases. Correlate with the patient's oncological history. 7. There are perigastric and perisplenic varices with evidence of a splenorenal shunt. 8. Additional findings as above. ACT 112: Negative or not required by law. Electronically signed by: Elbert Campos M.D. 08/24/2022 6:[address] 08/24/22 17:14 CT SCAN OF THE BRAIN WITHOUT IV CONTRAST CLINICAL HISTORY: Headache. COMPARISON STUDY: No priors. TECHNIQUE: Unenhanced axial CT scan of the brain is performed from the vertex to the skull base. A dose lowering technique was utilized adhering to the principles of ALARA. FINDINGS: Brain parenchyma: There is age-related involutional change noting minimal microangiopathic disease. There is no hemorrhage, mass effect, or evidence of acute territorial ischemia by CT criteria. Ramirez-white matter differentiation is preserved. No extra-axial fluid collection is seen. Ventricles, sulci, cisterns: Prominent secondary to involutional change. Intracranial vasculature: There is atherosclerotic calcification of the cavernous carotid and vertebral arteries. Calvarium: Unremarkable. Sinuses and mastoids: There is mild mucosal thickening within the left maxillary antrum and the ethmoid sinuses. Fluid is seen within the sphenoid sinuses. There are small mastoid effusions. Orbits: The bony orbits are grossly intact. IMPRESSION: No acute intracranial abnormality. ACT 112: Negative or not required by law. Electronically signed by: Elbert Campos M.D. 08/24/2022 6:17 PM Diagnostic Findings EKG as per my interpretation :Rate 85, NSR, LAD, LAFB, incomplete RBBB, T wave abnormality septal leads
[2022-08-24] MEDS ORDERED: POTASSIUM CHLORIDE CRTAB 20 MEQ TABCR PO ONE (22:30)
[2022-08-24] MEDS ORDERED: LORazepam 0.5 MG TAB PO PRN (23:35)
[2022-08-24] MEDS ORDERED: DEXTROSE 50% 50 ML SYRINGE IV PRN (23:35)
[2022-08-24] MEDS ORDERED: GLUCOSE 40% GEL 15 GM TUBE PO PRN (23:35)
[2022-08-24] MEDS ORDERED: GLUCOSE 10 TAB/TUBE PO PRN (23:35)
[2022-08-24] MEDS ORDERED: GLUCAGON FOR INJ 1 MG VIAL SQ PRN (23:35)
[2022-08-24] MEDS ORDERED: CARBOHYDRATES FOR HYPOGLYCEMIA PO PRN (23:35)
[2022-08-24] MEDS ORDERED: PROMETHAZINE HCL 12.5 MG in SODIUM CHLORIDE 0.9% 50 ML IV PRN (23:35)
[2022-08-24] MEDS ORDERED: traMADol HCL 50 MG TABLET PO PRN (23:35)
[2022-08-24] MEDS ORDERED: ACETAMINOPHEN 325 MG TAB PO PRN (23:35)
[2022-08-25] MEDS: PIPERACILLIN/TAZOBACTAM 3.375 GM in DEXTROSE 5% 100 ML IV SCH ×2 (00:14→08:00)
[2022-08-25] MEDS: INSULIN ASPART PER UNIT SC SCH ×3 (00:19→12:15)
[2022-08-25 07:23] LABS: Partial Thromboplastin Ratio 1.3; Partial Thromboplastin Time 37.1 Seconds (21.0-31.0)
[2022-08-25 07:47] LABS: Albumin Globulin Ratio 1.2 (0.9-2); Albumin Level 3.3 gm/dl (3.4-5.0); BUN Creatinine Ratio 12.8 (10-20); Bilirubin,Total 1.6 mg/dl (0.2-1.0); Calcium 6.9 mg/dl (8.5-10.1); Est GFR (African American) 108.5 ml/min; Est GFR (Non-African American) 93.6 ml/min; Globulin 2.7 gm/dl (2.5-4.0); Potassium 2.6 mmol/L (3.5-5.1)
[2022-08-25 07:52] LABS: Hematocrit (blood only) 31.1 % (40.1-51.0); Hemoglobin 11.4 g/dl (14.0-18.0); Mean Corpuscular Hemoglobin 33.6 pg (25.0-34.0); Mean Corpuscular Hgb Conc 36.7 g/dL (32.0-36.0); Mean Corpuscular Volume 91.7 fL (80.0-100.0); Mean Platelet Volume 11.5 fL (9.4-12.4); Nucleated RBC # (auto) 0.06 K/uL (0-0); Nucleated RBC % (auto) 1.3 %; Platelet Count 144 K/uL (130-400); RDW Coefficient of Variation 12.3 % (11.5-14.5); RDW Standard Deviation 40.8 fL (36.4-46.3); Red Blood Count 3.39 M/uL (4.63-6.08); White Blood Count 4.67 K/ul (4.8-10.8)
[2022-08-25 07:53] LABS: Basophils # (auto) 0.05 K/uL (0-0.2); Basophils % (auto) 1.1 %; Immature Granulocytes % (auto) 8.6 %; Lymphocytes # (auto) 1.72 K/uL (1.2-3.4); Lymphocytes % (auto) 36.8 %; Monocytes # (auto) 1.39 K/uL (0.24-0.82); Monocytes % (auto) 29.8 %; Neutrophils # (auto) 1.11 K/uL (1.4-6.5); Neutrophils % (auto) 23.7 %; Polychromasia 1+
[2022-08-25] MEDS ORDERED: TAMSULOSIN HCL 0.4 MG CAP PO SCH (09:00)
[2022-08-25] MEDS ORDERED: ATENOLOL 25 MG TABLET PO SCH (09:00)
[2022-08-25] MEDS ORDERED: LANTUS PER UNIT CHARGE SQ SCH (09:00)
[2022-08-25] MEDS ORDERED: ASPIRIN 81 MG ECTAB PO SCH (09:00)
--- NOTE | 2022-08-25 09:23 | Gastrointestinal Consultation ---
Date of Consultation August 25, 2022 Assessment & Plan (1) Diverticulitis: Patient is a 62 years old male with past medical history significant for prostate cancer with metastasis, currently on chemotherapy, who is admitted for sigmoid diverticulitis without complications. Upon my assessment today he appears comfortably laying on his bed, nontender, no guarding, abdomen is soft. He denies any nausea or vomiting, states that he would like to try solids for his meals. - Narrow antibx to Cipro/Flagyl - Advanced to regular diet - Plan for OP colonoscopy in 6-8 week's time - Start fiber after diverticulitis resolve - GI to sign off; pls recall prn History of Present Illness Reason for Consultation: Diverticulitis Requesting Physician: Dr. Nir Kearns Attending Physician: Dr. Cecy Haddad History of Present Illness Patient is a 62 years old male with past medical history is including hypertension, hyperlipidemia, diabetes mellitus type 2, metastatic prostate cancer currently undergoing chemotherapy, chronic anemia and previous tobacco abuse who presented yesterday with complaints of increased weakness, nausea, poor appetite. He also reported 2 weeks history of watery diarrhea without abdominal pain, however denies this upon my assessment today. Upon evaluation, he was noted to have sigmoid diverticulitis without abscess or perforation. He was started on Zosyn IV. He was also hypokalemic, receiving repletion. Tbili 2 -> 1.6, lipase normal. He is status post cholecystectomy, no signs of biliary ductal dilatation noted Patient has never had a colonoscopy for colorectal cancer screening, used Cologuard in the past. He denies any family history is of colorectal cancer. Allergies Allergy/AdvReac Type Severity Reaction Status Date / Time No Known Allergies Allergy Unverified 08/24/22 20:08 Home Medications Medication Instructions Recorded Confirmed Type aspirin 81 mg tablet,delayed 81 mg PO DAILY 08/26/18 08/24/22 History release (Ecotrin Low Strength) atenolol 25 mg tablet 25 mg PO DAILY 08/26/18 08/24/22 History tamsulosin 0.4 mg capsule (Flomax) 0.4 mg PO DAILY 08/27/18 08/24/22 History almotriptan malate 12.5 mg tablet 12.5 mg PO .COMPLEX PRN Migraine 08/01/19 08/24/22 History Headache blood-glucose meter (Accu-Chek #1 ea 08/01/19 06/06/22 History Guide Glucose Meter) hydrochlorothiazide 50 mg tablet 50 mg PO DAILY #30 tabs 08/01/19 08/24/22 History BD Ultra-Fine Mini Pen Needle 31 #400 ea 09/21/20 06/06/22 Rx gauge x 3/16" (pen needle, diabetic) lancets (Accu-Chek Fastclix Lancet #50 ea 03/22/21 06/06/22 History Drum) semaglutide 0.25 mg or 0.5 mg (2 0.5 mg (0.4 mL) subcut Q7D #3 01/24/22 08/24/22 Rx mg/1.5 mL) subcutaneous pen SYRINGES injector ([employer]) blood sugar diagnostic (Accu-Chek 06/06/22 History Guide test strips) acetaminophen 325 mg tablet 650 mg PO QID PRN Fever Or Pain 08/24/22 08/24/22 History (Tylenol) dexamethasone 4 mg tablet 8 mg PO .BID/UD 08/24/22 08/24/22 History insulin glargine 100 unit/mL (3 40 unit subcut HS 08/24/22 08/25/22 History mL) subcutaneous pen (Basaglar KwikPen U-100 Insulin) metformin 1,000 mg tablet 1,000 mg PO BIDM 08/24/22 08/24/22 History ondansetron HCl 8 mg tablet 8 mg PO Q8H PRN Nausea 08/24/22 08/24/22 History prochlorperazine maleate 10 mg 10 mg PO Q6H PRN Nausea 08/24/22 08/24/22 History tablet tramadol 50 mg tablet 50 mg PO Q6H PRN Pain 08/24/22 08/24/22 History insulin aspart U-100 100 unit/mL 140 unit subcut BIDWMEAL 08/25/22 08/25/22 History (3 mL) subcutaneous pen (Novolog Flexpen U-100 Insulin aspart) Patient History Medical History Hypertension Port-A-Cath in place Prostate cancer Prostate cancer Stage 4 prostate cancer, s/p radiation and chemo Surgical History History of lumbar surgery Family History Other Family history non-contributory Social History Smoking Status: Never smoker Cigarettes Per Day: Experimented at teenager then quit.; Second Hand Exposure: No; Do You Dip or Chew Tobacco: No; Tobacco Cessation Education Requested by Patient: No Hx Alcohol Use: No Hx Substance Use: No Preferred Language: Dutch Communication Ability: Effective [employer] Underwriter Required: No Beliefs That Will Affect Care: None marital status: Current Living Situation: Spouse Other Information That Helps Us Care for You: No Feels Safe at Home: Yes Safety Concerns: Feels Safe At This Time Assistive Devices: None Review of Systems Review of Systems: All systems reviewed & are unremarkable except as noted in HPI & below Physical Exam Constitutional: WD/WN, vitals as above well groomed, cooperative and comfortable Eyes: PERRL, conjunctivae normal, anicteric sclerae ENMT: external ear and nose normal, oropharynx normal Respiratory: normal respiratory effort, lungs clear to auscultation Cardiovascular: RRR, no murmur, no edema Gastrointestinal (Abdomen): normal bowel sounds, soft, nontender, no hepatosplenomegaly Skin: no rashes, warm and dry no jaundice Psychiatric: A+Ox3, euthymic affect Lymphatic: no lymphedema Results & Data ([facility]) Vital Signs (Past 12 Hours) Vital Signs Temp Pulse Pulse Pulse Resp BP BP 08/25/22 02:25 71 08/25/22 01:23 36.8 C 73 18 133/76 08/25/22 07:08 36.7 C 74 18 112/67 08/25/22 04:56 36.9 C 70 18 116/66 08/25/22 00:18 69 16 107/59 L 08/24/22 22:47 73 18 115/63 Pulse Ox O2 Del Method 08/25/22 02:25 08/25/22 01:23 93 Room Air 08/25/22 07:08 93 Room Air 08/25/22 04:56 93 Room Air 08/25/22 00:18 93 08/24/22 22:47 94 Room Air
[2022-08-25] MEDS ORDERED: POTASSIUM CHLORIDE CRTAB 20 MEQ TABCR PO STA (10:27)
--- NOTE | 2022-08-25 11:40 | Discharge Summary ---
Date of Service August 25, 2022 Admission HPI Per Admitting Provider History obtained from patient, family, and records. Medical history significant for hypertension, hyperlipidemia, DM2 insulin requiring, metastatic prostate cancer status post decompressive surgery ongoing chemotherapy, chronic anemia (baseline hemoglobin of 13), past tobacco abuse. Last confinement August 2018 for biliary colic status postcholecystectomy. 2 weeks history of watery diarrhea symptoms without abdominal pain. Increasing weakness, no chest pain, no shortness of breath. No recent antibiotic Rx. Chemotherapy medicine about 2 weeks ago. Poor appetite. Serum potassium of 2.9, total bilirubin of 2.2 on outpatient blood work this morning. Patient directed to ER by outpatient providers. Zosyn administered at the ER for diverticulitis. No prior episodes of diverticulitis as per patient account. No previous colonoscopies as per patient. Medical History as above Surgical History : Cholecystectomy, multiple back surgeries Family History : Prostate cancer Personal/Social history : Past tobacco abuse, occasional EtOH intake, [employer] employee Admission Exam Per Admitting Provider GENERAL: Comfortable, slightly anxious, obese, no respiratory distress SKIN: Normal color, warm HEENT: [place] palpebral conjunctivae, no ptosis, dry buccal mucosa NECK : Supple, no tenderness CHEST : CTA, no tenderness HEART : RRR, no obvious murmurs ABDOMEN: Some distention, nontender EXTREMITIES : No LE swelling/tenderness, no other conspicuous deformities noted NEUROLOGIC : Coherent, no facial asymmetry, no other gross focality Principal Diagnosis Acute sigmoid diverticulitis Discharge Exam Constitutional: WD/WN, vitals as above, NAD, sitting up in bed, pleasant, conversing easily Respiratory: normal respiratory effort, lungs clear to auscultation, no wheeze, rales, rhonchi. Normal insp/exp effort, no accessory muscle use Cardiovascular: RRR, no murmur, no edema Vessels: no JVD or carotid bruit Chest: Port-A-Cath in place Abdomen: normal bowel sounds, soft, nontender, no hepatosplenomegaly. Musculoskeletal: no cyanosis or clubbing, extremities motor strength 5/5 Skin: no rashes, warm and dry normal turgor Neurologic: PERRL, EOMI, accommodation nl, no face palsy, no dysarthria CN's II- XI intact bilaterally and moves all extremities Psychiatric: A+Ox3, euthymic affect Lymphatic: no cervical or axillary lymphadenopathy : deferred Discharge Data Allergies Allergy/AdvReac Type Severity Reaction Status Date / Time No Known Allergies Allergy Unverified 08/24/22 20:08 Consultations 08/24/22 18:49 ED Decision to Admit Stat 08/24/22 23:35 Consult Gastroenterology Routine Ordered Studies 08/24/22 17:14 CT Abd and Pelvis [CT abd pelvis IV con only] Stat CT head/brain wo con Stat Hospital Course (1) Diverticulitis: Plan Patient is a 62-year-old male with past medical history of hypertension, hyperlipidemia, insulin-dependent diabetes mellitus, metastatic prostate cancer currently on chemotherapy presented to the hospital with 2-week history of watery diarrhea and poor appetite. Patient underwent CT abdomen and pelvis; he was found to have acute sigmoid diverticulitis. He was admitted to telemetry floor for further management. He was started on IV fluids and Zosyn. GI was consulted for comanagement. You are recommended patient to have normal diet, switch antibiotic to ciprofloxacin and metronidazole and have outpatient follow- up for colonoscopy in 6 to 8 weeks. During the evaluation in the hospital, patient was also found to have hypokalemia. He was given IV and oral potassium supplements. Patient was discharged home with 6 more days of oral antibiotics with Cipro and metronidazole. He was also given prescription for potassium 20 M EQ to be taken 3 times daily for next 5 days. He was asked to hold off on hydrochlorothiazide given his hypokalemia. Patient was instructed to follow-up with GI and primary care doctor. Total Time Total Time Spent Total Time Spent (In Minutes): 35 Total Time Includes: Examination of the Patient, Discharge Planning, Medication Reconciliation, Communication With Other Providers and Other Discharge Plan Discharge Items Patient Disposition: Home - Self-Care Reason For Visit: HYPOTENSION, DIVERTICULITIS Discharge Diagnosis: Acute diverticulitis Activity: Resume your previous activity Non-emergency contact: Primary Care Provider Call non-emergency contact if: you have any medication questions and your symptoms worsen Follow-up/Referrals: Stephen Posey MD [Primary Care Provider] - (Date & Time 09/02/2022 3:20 PM Provider Stephen Posey MD Department Family Practice [facility] ) Diet: Regular Addtl Attending Provider Instructions: You were admitted to the hospital with acute diverticulitis. You were also found to have low potassium in your blood. You are prescribed following antibiotics for the acute diverticulitis: 1) ciprofloxacin 500 mg twice daily for 6 days 2) metronidazole 500 mg 3 times a day for 7 days. Please eat regular healthy meals containing high-fiber foods such as fruits, vegetable and whole grain foods after your pain is resolved. Please follow-up with the GI doctor in 6 to 8 weeks for outpatient colonoscopy. You are found to have low potassium in your blood. Please take potassium tablets 20 mEq 3 times a day for next 5 days. Please do not take your hydrochlorothiazide (antihypertensive) for those 5 days. Please follow-up with your primary care doctor. Pending Studies at Discharge: No Stand-Alone Forms: My Hall, Smoking Cessation Medications and DC Order Prescriptions: New potassium chloride 20 mEq tablet extended release 20 meq PO TID 5 Days Qty: 15 0RF ciprofloxacin HCl [Cipro] 500 mg tablet 500 mg PO BID 6 Days Qty: 12 0RF metronidazole 500 mg tablet 500 mg PO TID 6 Days Qty: 18 0RF Continued (DME) blood-glucose meter [Accu-Chek Guide Glucose Meter] misc See Dose Instructions .ROUTE .MEDSUPPLY Qty: 1 Rx Instructions: As directed almotriptan malate 12.5 mg tablet 12.5 mg PO .COMPLEX PRN (Reason: Migraine Headache) Label Comments: 12.5 mg PO Take at onset of migraine. May repeat in 2 hours. MAX 2 DOSES/24 HOURS/ NO MORE THEN 3 DAYS PER WEEK; Rx Instructions: 12.5 mg PO Take at onset of migraine. May repeat in 2 hours. MAX 2 DOSES/24 HOURS/ NO MORE THEN 3 DAYS PER WEEK; hydrochlorothiazide 50 mg tablet 50 mg PO DAILY Qty: 30 (DME) lancets [Accu-Chek Fastclix Lancet Drum] Misc See Rx Instructions .ROUTE .MEDSUPPLY Qty: 50 Rx Instructions: Test blood sugars 4 times a day Ozempic 0.25 mg or 0.5 mg(2 mg/1.5 mL) pen injector 0.5 mg subcut Q7D Qty: 3 3RF Rx Instructions: TAKE THIS MED EVERY MONDAY. (DME) pen needle, diabetic [BD Ultra-Fine Mini Pen Needle] 31 gauge x 3/16" needle See Rx Instructions .ROUTE .MEDSUPPLY Qty: 400 3RF Rx Instructions: test 4 times daily (DME) Accu-Chek Guide test strips Strip See Rx Instructions .ROUTE .MEDSUPPLY Rx Instructions: Test blood sugars 2 times a day atenolol 25 mg tablet 25 mg PO DAILY aspirin [Ecotrin Low Strength] 81 mg Tablet,Delayed Release (Dr/Ec) 81 mg PO DAILY tamsulosin [Flomax] 0.4 mg Capsule 0.4 mg PO DAILY acetaminophen [Tylenol] 325 mg Tablet 650 mg PO QID PRN (Reason: Fever Or Pain) tramadol 50 mg tablet 50 mg PO Q6H PRN (Reason: Pain) dexamethasone 4 mg tablet 8 mg PO .BID/UD Rx Instructions: TAKE 8MG (TWO TABS) TWICE A DAY FOR 3 DAYS STARTING THE DAY BEFORE BONNIE MOTHERAPY. metformin 1,000 mg tablet 1,000 mg PO BIDM ondansetron HCl 8 mg tablet 8 mg PO Q8H PRN (Reason: Nausea) prochlorperazine maleate 10 mg tablet 10 mg PO Q6H PRN (Reason: Nausea) insulin glargine [Basaglar KwikPen U-100 Insulin] 100 unit/mL (3 mL) insulin pen 40 unit SUBCUT HS insulin aspart U-100 [Novolog Flexpen U-100 Insulin] 100 unit/mL (3 mL) insulin pen 140 unit SQ BIDWMEAL Rx Instructions: INJECT 50 UNITS UNDER THE SKIN, TWO TIMES DAILY WITH MORNING AND EVENING MEALS. INJECT 70 UNITSWITH EACH DEXAMETHASONE DOSE ( TWICE DAILY FOR THREE DAYS WITH CHEMO). Discharge Orders: Discharge Order (Routine); Ordered 08/25/22 Ordered By: Nir Kearns Admission Data Admit Date/Time: 08/24/22 20:30 Attending Provider: Nir Kearns Admit Provider: Mo Quintero Primary Care Provider: Stephen Posey Other Providers: Mo Quintero ; Alma Oden ; Emmanuel Cardozo ; Kylee Ruelas ; Valerie Baez ; Betty Parish ; Christy Escobar ; Ba Childers ; Kayce Iglesias ; Addis Gerber ; Piter Lanza ; Kb Renteria ; April Neri ; Angel Gongora ; Rafael Hopkins ; Chava Ferreira ; Karlee Rajput ; Cecy Haddad ; Jennifer King ; Dana Blunt ; Eric Maher ; Ag Lynne ; Matthew Wright ; Sajan Bello ; Theresa Marsh ; Jayshree Ferrer Jr Other Interventions: Discharge Summary Assessment (RN) Last Done: 08/25/22 13:28
[2022-08-25] MEDS ORDERED: POTASSIUM ACETATE/NSS 10 MEQ/105 ML BAG IV ONE (11:45)
[2022-08-25] MEDS: POTASSIUM CHLORIDE / WTR 10 MEQ/100 ML PLCT IV SCH ×2 (12:08→13:35)
[2022-08-25] MEDS ORDERED: metroNIDAZOLE 500 MG/100 ML BAG IV SCH (13:00)
[2022-08-25] MEDS ORDERED: CIPROFLOXACIN / D5W 400 MG/200 ML BAG IV SCH (14:00)
--- NOTE | 2022-08-25 21:00 | Electrocardiogram Report ---
Test Reason : Blood Pressure : / mmHG Vent. Rate : 085 BPM Atrial Rate : 085 BPM P-R Int : 166 ms QRS Dur : 118 ms QT Int : 418 ms P-R-T Axes : 029 -52 048 degrees QTc Int : 497 ms Normal sinus rhythm Incomplete right bundle branch block Left anterior fascicular block Nonspecific ST abnormality Prolonged QT Abnormal ECG When compared with ECG of 26-AUG-2018 19:24, Left anterior fascicular block is now Present Confirmed by Juancho Calderon ([id number]) on 08/25/2022 9:00:00 PM Referred By: Zia Samayoa Confirmed By:Juancho Calderon
== END 2022-08-25 16:00 | disposition home or self-care (01) ==
LOC: ED 14:50 → EDINP 20:30 → INTOOBSV 20:30 → 2W 23:34

== ENCOUNTER 2023-06-02 09:50 | Inpatient (IN) ==
[2023-06-02] MEDS ORDERED: SODIUM CHLORIDE 0.9% 1000ML 1,000 ML IV ONE ×2 (10:12→11:40)
[2023-06-02 11:20] LABS: Basophils # (auto) 0.03 K/uL (0-0.2); Basophils % (auto) 0.8 %; Immature Granulocytes # (auto) 0.05 K/uL (0.01-0.20); Immature Granulocytes % (auto) 1.4 %; Lymphocytes # (auto) 1.02 K/uL (1.2-3.4); Lymphocytes % (auto) 28.3 %; Monocytes # (auto) 0.23 K/uL (0.11-0.59); Monocytes % (auto) 6.4 %; Neutrophils # (auto) 2.28 K/uL (1.40-6.50); Neutrophils % (auto) 63.1 %; Platelet Estimate Decreased (Normal)
[2023-06-02 11:21] LABS: Hematocrit (blood only) 30.9 % (42.0-52.0); Hemoglobin 10.9 g/dl (14.0-18.0); Mean Corpuscular Hemoglobin 32.1 pg (25.0-34.0); Mean Corpuscular Hgb Conc 35.3 g/dL (32.0-36.0); Mean Corpuscular Volume 90.9 fL (80.0-100.0); Platelet Count 65 K/uL (130-400); RDW Coefficient of Variation 13.9 % (11.5-14.5); RDW Standard Deviation 45.8 fL (36.4-46.3); White Blood Count 3.61 K/ul (4.8-10.8)
[2023-06-02 11:34] LABS: Alanine Aminotransferase 17 U/L (7-52); Albumin Level 3.5 gm/dl (3.4-5.0); Alkaline Phosphatase 101 U/L (34-104); Anion Gap 13 (3-11); Aspartate Aminotransferase 17 U/L (13-39); BUN Creatinine Ratio 15.8 (10-20); Bilirubin Direct 0.4 mg/dl (0-0.2); Bilirubin,Total 1.5 mg/dl (0.2-1.0); Blood Urea Nitrogen 19 mg/dl (6-23); Calcium 8.2 mg/dl (8.6-10.3); Carbon Dioxide 22 mmol/L (21-32); Chloride 92 mmol/L (98-107); Est GFR (African American) 75.2 ml/min; Est GFR (Non-African American) 64.9 ml/min; Glucose 902 mg/dl (70-99(Fasting)); Lipase 45 U/L (11-82); Potassium 3.9 mmol/L (3.5-5.1); Sodium 127 mmol/L (136-145); Total Protein 6.8 gm/dl (6.0-8.3)
[2023-06-02] MEDS ORDERED: GLUCAGON FOR INJ 1 MG VIAL SQ PRN (11:40)
[2023-06-02] MEDS ORDERED: STAT INSULIN DRIP STA (11:40)
[2023-06-02] MEDS ORDERED: GLUCOSE 40% GEL 15 GM TUBE PO PRN (11:40)
[2023-06-02] MEDS ORDERED: DEXTROSE 50% 50 ML SYRINGE IV PRN (11:40)
[2023-06-02] MEDS ORDERED: CARBOHYDRATES FOR HYPOGLYCEMIA PO PRN (11:40)
[2023-06-02] MEDS ORDERED: GLUCOSE 10 TAB/TUBE PO PRN (11:40)
[2023-06-02] MEDS ORDERED: INSULIN REGULAR 250 UNITS in SODIUM CHLORIDE 0.9% 247.5 ML IV SCH (11:45)
[2023-06-02] MEDS ORDERED: MAGNESIUM HYDROXIDE SUSP 30 ML UDC PO PRN (12:01)
[2023-06-02] MEDS ORDERED: POLYETHYLENE (MIRALAX) 17 GM PACK PO PRN (12:01)
[2023-06-02] MEDS ORDERED: ALUMINUM/MAGNESIUM SUSP 30 ML UDC PO PRN (12:01)
[2023-06-02] MEDS ORDERED: ONDANSETRON INJ 2 MG/ML 2 ML VIAL IV PRN (12:01)
[2023-06-02] MEDS ORDERED: ACETAMINOPHEN 325 MG TAB PO PRN (12:01)
[2023-06-02] MEDS ORDERED: DKA GOAL RANGE 150-250 mg/dl ONE (12:12)
[2023-06-02] MEDS ORDERED: PHARMACY GLYCEMIC MGMT CONSULT PRN (12:12)
--- NOTE | 2023-06-02 12:29 | History & Physical Report ---
Date of Service June 02, 2023 Assessment & Plan (1) Hypertension: (2) Dyslipidemia: (3) Type 2 diabetes mellitus: Plan 62 year old presents with symptoms of DKA; glucose 902. 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 Samayoa. Diagnosed 2015. Will rule out infectious cause; however, believe he will correct quick quickly as it appears his symptoms are from noncompliance rather than an infectious, acidotic, or hypovolemic origin. Uncontrolled DM II: Non Complaint serum glucose 902; at baseline takes Basaglar 70 units and NovoLog along with metformin Osmololity 318 VBG pending Anion Gap: 13 Serum sodium 127; corrected sodium 139 Received 1 L NS in ED; 1/2 NS + 20KCL at 200mL/hour; will trend labs Q4 per DKA protocol UA pending Does not appear toxic life skills educator consultation placed Stage IV prostate CA with bone mets: Diagnosed 09/2016. Patient was having back pain and seen by orthopedic surgeon found to have multiple lesions in lumbar vertebral body Official diagnosis with MRI showing multiple lytic lesions Follows with Dr. Samayoa Last chemotherapy May 23; current regimen is cabazitaxel every 3 weeks which was started on November 2022; Takes tramadol PRN; continue HTN: Was taking enalapril and HCTZ; was discontinued in November 2022 PRN Hydralazine with parameters Disposition: PCP: Dr. Posey Code Status: Full Code VTE Prophylaxis: teds and SCDS for now I spent a total of 87 minutes coordinating, documenting, and providing care for this patient excluding time spent in the performance of separately billed services. All of the aforementioned completed while collaborating with the assigned attending physician for a full treatment plan. Please see their addendum for further details. History of Present Illness Chief Complaint: DKA Primary Care Provider: Stephen Posey MD Mr. Beavers is a 62 year old male that presents to the ED today with serum glucose level of 902. He is being followed by Dr. Samayoa for stage IV prostate cancer with mets to bone. His last treatment was last Monday. Since then, he was having some chills and nausea and has not taken any of his medications; including his Insulin. It does not appear that the patient is toxic; he is hemodynamically stable. Will rule out infectious cause; however, believe he will correct quick quickly as it appears his symptoms are from noncompliance rather than an infectious, acidotic, or hypovolemic origin. No leukocytosis, does not appear toxic. Osmoloity 318, AG 13, Na+ 127; correct Na 139. Glucose level 902; goal 150-250. Serum Sodium 127; corrected Sodium 139. Current chemotherapy regimen: Cabazitaxel 20 mg/m every 3 weekly started on 12/26/2022. Treatment has been delayed because of low Platelet count and he was not feeling well and he declined for prophylactic Pegfilgrastim. In February, his dose was adjusted and reduced due to side effects and intolerance. He underwent decompressive surgery with fusion of L3-L5 vertebral body for metastatic prostate cancer in November 2016. Final pathology at that time was metastatic adenocarcinoma of the prostate. In November 2016; PSA level was 1423. He received 6 cycles of chemotherapy with Taxotere which was completed in March 2017. Also started him on Lupron at the same time in December 2016. Also started on Zometa every monthly at the same time. Patient denies BRAVO, dizziness, SOB, chest pain, palpitations, vomiting, diarrhea, urinary changes, visual changes, auditory changes, recent falls or trauma. He was taking Atenolol and HCTZ and both were stopped in November. Patient will be admitted for further evaluation and management. Please see A/P for further details. Allergies Allergy/AdvReac Type Severity Reaction Status Date / Time No Known Allergies Allergy Unverified 08/24/22 20:08 Home Medications Medication Instructions Recorded Confirmed Type aspirin 81 mg tablet,delayed 81 mg PO DAILY 08/26/18 06/02/23 History release (Ecotrin Low Strength) tamsulosin 0.4 mg capsule (Flomax) 0.4 mg PO DAILY 08/27/18 06/02/23 History almotriptan malate 12.5 mg tablet 12.5 mg PO .COMPLEX PRN Migraine 08/01/19 06/02/23 History Headache blood-glucose meter (Accu-Chek #1 ea 08/01/19 06/06/22 History Guide Glucose Meter) BD Ultra-Fine Mini Pen Needle 31 #400 ea 09/21/20 06/06/22 Rx gauge x 3/16" (pen needle, diabetic) lancets (Accu-Chek Fastclix Lancet #50 ea 03/22/21 06/06/22 History Drum) blood sugar diagnostic (Accu-Chek 06/06/22 History Guide test strips) acetaminophen 325 mg tablet 650 mg PO QID PRN Fever Or Pain 08/24/22 06/02/23 History (Tylenol) metformin 1,000 mg tablet 1,000 mg PO BIDM 08/24/22 06/02/23 History ondansetron HCl 8 mg tablet 8 mg PO Q8H PRN Nausea 08/24/22 06/02/23 History tramadol 50 mg tablet 50 mg PO Q6H PRN Pain 08/24/22 06/02/23 History insulin aspart U-100 100 unit/mL 140 unit subcut BIDWMEAL 08/25/22 06/02/23 History (3 mL) subcutaneous pen (Novolog FlexPen U-100 Insulin aspart) Basaglar KwikPen U-100 Insulin 100 70 unit (0.7 mL) subcut HS #65 mL 02/13/23 06/02/23 Rx unit/mL (3 mL) subcutaneous (insulin glargine) potassium chloride 10 mEq 20 meq PO AMPM 06/02/23 06/02/23 History capsule,extended release Past Med/Surg History Medical History DKA (diabetic ketoacidosis) Hypertension Port-A-Cath in place Prostate cancer Prostate cancer Stage 4 prostate cancer, s/p radiation and chemo Surgical History History of lumbar surgery Family History Other Family history non-contributory Social History Smoking Status: Never smoker Cigarettes Per Day: Experimented at teenager then quit.; Second Hand Exposure: No; Do You Dip or Chew Tobacco: No; Hx Alcohol Use: No Hx Substance Use: No Preferred Language: Tanzanian Communication Ability: Effective Informatics Nurse Required: No Beliefs That Will Affect Care: None marital status: Current Living Situation: Spouse Feels Safe at Home: Yes Assistive Devices: None Review of Systems Review of Systems: Neuro: (-) Falls, trauma, slurred speech HEENT: (-) BRAVO, dizziness, dysphagia, visual or auditory changes CV: (-) CP, palpitations, swelling Resp: (-) SOB GI: (+) appetite changes, N/V/D, bowel changes : (-) urinary changes Skin: (-) rashes Psych: (-) anxiety, depression Physical Exam Physical Exam: See. Dr. Beebe's addendum for physical examination details. Results & Data Results & Data Vital Signs (Past 12 Hours) Vital Signs Temp Pulse Pulse Resp BP Pulse Ox O2 Del Method 06/02/23 11:00 Room Air 06/02/23 11:00 72 18 95 Room Air 06/02/23 09:53 37.1 C 88 18 142/87 H 97 Room Air Laboratory Results Short CBC 06/02/23 Range/Units 10:25 WBC 3.61 L (4.8-10.8) K/ul Hgb 10.9 L (14.0-18.0) g/dl Hct 30.9 L (42.0-52.0) % Plt Count 65 L (130-400) K/uL BMP 06/02/23 10:25 Sodium 127 L Potassium 3.9 Chloride 92 L Carbon Dioxide 22 BUN 19 Creatinine 1.20 Glucose 902 H* Calcium 8.2 L Liver Function 06/02/23 Range/Units 10:25 Total Bilirubin 1.5 H (0.2-1.0) mg/dl Direct Bilirubin 0.4 H (0-0.2) mg/dl AST 17 (13-39) U/L ALT 17 (7-52) U/L Alkaline Phosphatase 101 (34-104) U/L Albumin 3.5 (3.4-5.0) gm/dl Code Status & VTE Plan Code Status Full Code in the event of cardiac or respiratory arrest VTE Prophylaxis Plan VTE Prophylaxis will be ordered: Yes Supervising Physician Co-Signing Physician Notes Patient is a 62-year-old male with history of metastatic prostate cancer S/P radiation therapy, currently undergoing chemotherapy and other medical problems presents with history of generalized weakness, very poor oral intake, nausea but no vomiting, associated chills since last chemotherapy on Monday. Patient denies any chest pain, dyspnea, dizziness, diarrhea, abdominal pain. Patient admits to not taking his home medications including insulin for the past 3 to 4 days. Please review HPI for complete details of presentation. Physical Exam: Vitals signs as noted above General Appearance:Moderately built and nourished, no apparent distress Head: normocephalic, Atraumatic Eyes: normal inspection, EOMI Neck: supple, Trachea midline Respiratory/Chest: Normal breath sounds, CTA, No accessory muscle use, R chemo port Cardiovascular: S1, S2, No murmur Abdomen/GI:Soft, Non tender, Bowel sounds present Extremities/Musculoskeletal:normal inspection, no edema Neurologic/Psych:AAOX3, grossly no focal neurological deficits Skin: normal color, warm Uncontrolled diabetes mellitus Due to noncompliance Does not meet DKA criteria Trace ketones in urine likely due to poor oral intake Risk for developing DKA high Continue IV fluids, insulin Replete electrolytes as needed Plan ischemic pharmacist consulted community health educator consulted Corrected sodium within normal limits for hyperglycemia Pancytopenia Secondary to chemotherapy Hold anticoagulation given significant low platelets Abnormal urinalysis Denies any UTI symptoms Hold antibiotics for now Metastatic prostate cancer Follows with Dr. Samayoa as outpatient I personally reviewed the record. Patient is interviewed and examined at bedside. Patient's care is coordinated with Mariela ROUSE. Please refer to the documentation above for details of patient's presentation and for discussion of other issues. SENIOR ADMINISTRATIVE SERVICES OFFICER note is edited as necessary. (1) Hypertension Hypertension type: essential hypertension Qualified Code(s): I10 - Essential (primary) hypertension
[2023-06-02] MEDS ORDERED: SODIUM CHLOR 0.45% + 20MEQ KCL 20 MEQ/1,000 ML BAG IV SCH (12:30)
[2023-06-02 12:40] LABS: Base Excess VBG 1.3 mEq/L; HCO3 VBG 26 mmol/L; Oxygen Saturation VBG < 60.0 %; PCO2 VBG 40 mmHg (38-50); PO2 VBG 31 mmHg; pH VBG 7.42 (7.36-7.41)
[2023-06-02] MEDS ORDERED: hydrALAZINE HCL 20 MG/ML VIAL IV PRN (12:54)
[2023-06-02] MEDS: INSULIN REGULAR 250 UNITS in SODIUM CHLORIDE 0.9% 247.5 ML IV SCH (13:02)
[2023-06-02] MEDS ORDERED: traMADol HCL 50 MG TABLET PO PRN (13:16)
[2023-06-02 13:57] LABS: BUN Creatinine Ratio 16.4 (10-20); Calcium 8.2 mg/dl (8.6-10.3); Creatinine Clr Calc Pharmacy 78.6 ml/min; Est GFR (African American) 83.5 ml/min; Est GFR (Non-African American) 72.1 ml/min; Magnesium 1.7 mg/dl (1.7-2.4); Phosphorus 2.1 mg/dl (2.5-4.9); Potassium 3.6 mmol/L (3.5-5.1)
--- NOTE | 2023-06-02 14:18 | Pharmacy Report ---
Pharmacy Glycemic Short Note 2 - Date of Service June 02, 2023 - Glycemic Short BSG Results (Last 24 hours): 06/02/23 06/02/23 06/02/23 10:21 10:23 10:25 Glucose 902 H* POC Glucose > 600 H* > 600 H* 06/02/23 06/02/23 12:52 14:02 Glucose 705 H* POC Glucose 595 H* OUTPATIENT ANTIDIABETIC REGIMEN: * Basaglar 70 units daily at HS, novolog 50 units BID, metformin 1 g bid ASSESSMENT: * 62 year old admitted with DKA, started on insulin infusion per protocol. Hx of stage IV prostate cancer with mets to bone. Last treatment session was last Monday. Per notes, patient with chills, nausea and has not taken any of his medications including insulin. * Records indicating patient has followed with [facility] - last visit 05/2022. * Will continue with insulin drip per protocol until labs normalize. PLAN FOR INPATIENT GLYCEMIC CONTROL: * Hold outpatient oral diabetes medications * Continue insulin drip - transition off insulin drip to be evaluated 7/8 AM
--- NOTE | 2023-06-02 15:07 | Emergency Department Note ---
History of Present Illness General Chief complaint: Testing Request Stated complaint: BLOODWORK Time Seen by Provider: 06/02/23 10:08 History of Present Illness Provider complaint: Elevated blood sugar 62-year-old male presents to the emergency department for elevated blood sugars. Patient reports that he had chemotherapy on May 23 and since then he has not been feeling well so he has not taken any of his diabetes medications specifically his insulin. He reports increasing nausea and thirst. He reports no fevers. No vomiting. No abdominal pain. No falls. Patient reports he was sent here after being seen at [facility]. Home Medications Medication Instructions Recorded Confirmed Type aspirin 81 mg tablet,delayed 81 mg PO DAILY 08/26/18 06/02/23 History release (Ecotrin Low Strength) tamsulosin 0.4 mg capsule (Flomax) 0.4 mg PO DAILY 08/27/18 06/02/23 History almotriptan malate 12.5 mg tablet 12.5 mg PO .COMPLEX PRN Migraine 08/01/19 06/02/23 History Headache blood-glucose meter (Accu-Chek #1 ea 08/01/19 06/06/22 History Guide Glucose Meter) BD Ultra-Fine Mini Pen Needle 31 #400 ea 09/21/20 06/06/22 Rx gauge x 3/16" (pen needle, diabetic) lancets (Accu-Chek Fastclix Lancet #50 ea 03/22/21 06/06/22 History Drum) blood sugar diagnostic (Accu-Chek 06/06/22 History Guide test strips) acetaminophen 325 mg tablet 650 mg PO QID PRN Fever Or Pain 08/24/22 06/02/23 History (Tylenol) metformin 1,000 mg tablet 1,000 mg PO BIDM 08/24/22 06/02/23 History ondansetron HCl 8 mg tablet 8 mg PO Q8H PRN Nausea 08/24/22 06/02/23 History tramadol 50 mg tablet 50 mg PO Q6H PRN Pain 08/24/22 06/02/23 History insulin aspart U-100 100 unit/mL 140 unit subcut BIDWMEAL 08/25/22 06/02/23 History (3 mL) subcutaneous pen (Novolog FlexPen U-100 Insulin aspart) Ronen KwikPen U-100 Insulin 100 70 unit (0.7 mL) subcut HS #65 mL 02/13/23 06/02/23 Rx unit/mL (3 mL) subcutaneous (insulin glargine) potassium chloride 10 mEq 20 meq PO AMPM 06/02/23 06/02/23 History capsule,extended release Allergies Allergy/AdvReac Type Severity Reaction Status Date / Time No Known Allergies Allergy Unverified 08/24/22 20:08 Past Med/Surg History Medical History DKA (diabetic ketoacidosis) Hypertension Port-A-Cath in place Prostate cancer Prostate cancer Stage 4 prostate cancer, s/p radiation and chemo Surgical History History of lumbar surgery Family History Other Family history non-contributory Social History Smoking Status: Never smoker Cigarettes Per Day: Experimented at teenager then quit.; Second Hand Exposure: No; Do You Dip or Chew Tobacco: No; Hx Alcohol Use: No Hx Substance Use: No Preferred Language: Yakut Communication Ability: Effective Tank Car Loader Required: Voice Beliefs That Will Affect Care: None marital status: Current Living Situation: Spouse Feels Safe at Home: Yes Safety Concerns: Feels Safe At This Time Assistive Devices: None Physical Exam Vital Signs Vital Signs - 24 hr 06/02/23 09:53 06/02/23 11:00 06/02/23 11:00 Temperature 37.1 C Temperature Source Oral Pulse Rate 88 Pulse Rate [Right Finger] 72 Pulse Rhythm [Right Finger] Regular Pulse Strength [Right Finger] Normal Respiratory Rate 18 18 Respiratory Effort / Characteristics Non-Labored Spontaneous Non-Labored Respiratory Depth Normal Normal Respiratory Pattern Regular Regular Blood Pressure 142/87 H Blood Pressure Mean 105 Blood Pressure Position Sitting Pulse Oximetry 97 95 Oxygen Delivery Method Room Air Room Air Room Air Sepsis Recent Fever Within 48 Hours No Sepsis New/Unexplained Change in Mental Status No Sepsis Action Taken by Nursing No Action Required Physical Exam GENERAL: He is oriented to person, place, and time. He appears well-developed and well-nourished. He does not appear distressed. HENT: Exam performed. - Head: Normocephalic and atraumatic. - Right Ear: External ear normal. No mastoid erythema - Left Ear: External ear normal. No mastoid erythema - Mouth/Throat: The oropharynx is clear and moist. No trismus in the jaw. No dental abscesses or uvula swelling. No oropharyngeal exudate or tonsillar a bscesses. EYES: Conjunctivae and EOM are normal. Pupils are equal, round, and reactive to light. Right eye exhibits no discharge. Left eye exhibits no discharge. No scleral icterus. NECK: Normal range of motion. Neck supple. No JVD present.No tracheal deviation and normal range of motion present. CV: Normal rate, regular rhythm, normal heart sounds and intact distal pulses. There is no peripheral edema. Palpable radial pulses bue. PULM/CHEST: Effort normal and breath sounds normal. No respiratory distress. No stridor. He has no wheezes. He has no rales. ABD: The abdomen is soft. He has no distension. No mass is present. There is no tenderness. There is no rebound, no guarding, no Montano's sign and no tenderness at McBurney's point. Rovsig negative. MUSC/SKEL: Normal range of motion. There is no peripheral edema, tenderness or deformity. NEURO: He is alert and oriented to person, place, and time. He has normal strength. No cranial nerve deficit or sensory deficit. Coordination and gait normal. GCS eye subscore is 4. GCS verbal subscore is 5. GCS motor subscore is 6. Cerebellar tests wnl. Course Course 1008: The patient was evaluated in room B5. A complete history and physical exam was performed Cardiac monitoring: An order was placed for continuous cardiac monitoring. The monitor shows a rate of 80 with sinus rhythm interpreted by me Patient's blood sugar is critical high. 1140: Vital signs stable. Patient's blood glucose greater than 900 and patient has an anion gap. Patient was given 1 L of IV fluids will be started on insulin drip. [facility]. [facility] Medications Insulin Human Regular 250 (units/ Sodium Chloride) 250 mls @ 10.8 mls/hr IV .Q23H9M [facility]; Protocol Stop: 07/02/23 11:44 Last Titration: 06/02/23 14:11 Dose: 10.8 unit/hr, 10.8 mls/hr Documented By: AK Co-signed By: Admin: 06/02/23 13:02 Dose: 9 unit/hr, 9 mls/hr Documented By: FEDERICO Co-signed By: QGV Potassium Chloride/Sodium Chloride (1/2 Nss + 20meq Kcl 1000ml) 20 meq in 1,000 mls @ 125 mls/hr IV .Q8H GIANNA; Protocol Stop: 07/02/23 12:29 Last Infusion: 06/02/23 14:05 Dose: 125 mls/hr Documented By: Admin: 06/02/23 13:01 Dose: 200 mls/hr Documented By: FEDERICO Discontinued Medications Sodium Chloride (Nss 1000ml) 1,000 mls @ 999 mls/hr IV .Q1H1M ONE Stop: 06/02/23 11:12 Last Infusion: 06/02/23 11:33 Dose: 0 mls/hr Documented By: Admin: 06/02/23 10:30 Dose: 999 mls/hr Documented By: KYLE Sodium Chloride (Nss 1000ml) 1,000 mls @ 999 mls/hr IV .Q1H1M ONE Stop: 06/02/23 12:40 Last Infusion: 06/02/23 13:47 Dose: 0 mls/hr Documented By: Admin: 06/02/23 12:11 Dose: 999 mls/hr Documented By: FEDERICO Critical Care Time Critical Care Time: Yes Total Critical Care Time: 60 I have personally spent greater than 60 minutes of critical care time in the direct management of this patient. This includes bedside care, interpretation of diagnostic studies, and testing, discussion with consultants, patient, and family members, and other required patient management activities. This 60 minutes is in excess of all separately billable procedures. Medical Decision Making Laboratory Data Attestation: I reviewed the patient's lab results. 06/02/23 10:25 06/02/23 12:52 Lab Results 06/02/23 06/02/23 06/02/23 Range/Units 10:21 10:23 10:25 WBC 3.61 L (4.8-10.8) K/ul RBC 3.40 L (4.70-6.10) M/uL Hgb 10.9 L (14.0-18.0) g/dl Hct 30.9 L (42.0-52.0) % MCV 90.9 (80.0-100.0) fL MCH 32.1 (25.0-34.0) pg MCHC 35.3 (32.0-36.0) g/dL RDW Std Deviation 45.8 (36.4-46.3) fL RDW Coeff of Ovsaldo 13.9 (11.5-14.5) % Plt Count 65 L (130-400) K/uL Immature Gran % (Auto) 1.4 % Neut % (Auto) 63.1 % Lymph % (Auto) 28.3 % Fallon % (Auto) 6.4 % Eos % (Auto) 0.0 % Baso % (Auto) 0.8 % Neut # (Auto) 2.28 (1.40-6.50) K/uL Lymph # (Auto) 1.02 L (1.2-3.4) K/uL Fallon # (Auto) 0.23 (0.11-0.59) K/uL Eos # (Auto) 0.00 (0-0.50) K/uL Baso # (Auto) 0.03 (0-0.2) K/uL Immature Gran # (Auto) 0.05 (0.01-0.20) K/uL Platelet Estimate Decreased L (Normal) Sodium (136-145) mmol/L Potassium (3.5-5.1) mmol/L Chloride (98-107) mmol/L Carbon Dioxide (21-32) mmol/L Anion Gap (3-11) BUN (6-23) mg/dl Creatinine (0.6-1.4) mg/dl Est Cr Clr Drug Dosing Est GFR ( Amer) ml/min Est GFR (Non-Af Amer) ml/min BUN/Creatinine Ratio (10-20) Glucose (70-99(Fasting)) mg/dl POC Glucose > 600 H* > 600 H* (70-99) mg/dl Osmolality (280-300) mOsm/kg Calcium (8.6-10.3) mg/dl Total Bilirubin (0.2-1.0) mg/dl Direct Bilirubin (0-0.2) mg/dl AST (13-39) U/L ALT (7-52) U/L Alkaline Phosphatase (34-104) U/L Total Protein (6.0-8.3) gm/dl Albumin (3.4-5.0) gm/dl Lipase (11-82) U/L SARS-CoV-2, RNA, NAAT (NEGATIVE) 06/02/23 06/02/23 06/02/23 Range/Units 10:25 10:25 12:00 WBC (4.8-10.8) K/ul RBC (4.70-6.10) M/uL Hgb (14.0-18.0) g/dl Hct (42.0-52.0) % MCV (80.0-100.0) fL MCH (25.0-34.0) pg MCHC (32.0-36.0) g/dL RDW Std Deviation (36.4-46.3) fL RDW Coeff of Osvaldo (11.5-14.5) % Plt Count (130-400) K/uL Immature Gran % (Auto) % Neut % (Auto) % Lymph % (Auto) % Fallon % (Auto) % Eos % (Auto) % Baso % (Auto) % Neut # (Auto) (1.40-6.50) K/uL Lymph # (Auto) (1.2-3.4) K/uL Fallon # (Auto) (0.11-0.59) K/uL Eos # (Auto) (0-0.50) K/uL Baso # (Auto) (0-0.2) K/uL Immature Gran # (Auto) (0.01-0.20) K/uL Platelet Estimate (Normal) Sodium 127 L (136-145) mmol/L Potassium 3.9 (3.5-5.1) mmol/L Chloride 92 L (98-107) mmol/L Carbon Dioxide 22 (21-32) mmol/L Anion Gap 13 H (3-11) BUN 19 (6-23) mg/dl Creatinine 1.20 (0.6-1.4) mg/dl Est Cr Clr Drug Dosing Not Reportable Est GFR ( Amer) 75.2 ml/min Est GFR (Non-Af Amer) 64.9 ml/min BUN/Creatinine Ratio 15.8 (10-20) Glucose 902 H* (70-99(Fasting)) mg/dl POC Glucose (70-99) mg/dl Osmolality 318 H (280-300) mOsm/kg Calcium 8.2 L (8.6-10.3) mg/dl Total Bilirubin 1.5 H (0.2-1.0) mg/dl Direct Bilirubin 0.4 H (0-0.2) mg/dl AST 17 (13-39) U/L ALT 17 (7-52) U/L Alkaline Phosphatase 101 (34-104) U/L Total Protein 6.8 (6.0-8.3) gm/dl Albumin 3.5 (3.4-5.0) gm/dl Lipase 45 (11-82) U/L SARS-CoV-2, RNA, NAAT NEGATIVE (NEGATIVE) MDM Narrative 1008: The patient was evaluated in room B5. A complete history and physical exam was performed Cardiac monitoring: An order was placed for continuous cardiac monitoring. The monitor shows a rate of 80 with sinus rhythm interpreted by me Patient's blood sugar is critical high. 1140: Vital signs stable. Patient's blood glucose greater than 900 and patient has an anion gap. Patient was given 1 L of IV fluids will be started on insulin drip. [facility] Impression & Plan DKA (diabetic ketoacidosis) Discharge Plan Visit Data Chief Complaint: Testing Request Stated Complaint: BLOODWORK ED Provider: Eric Hameed Discharge Problem: DKA (diabetic ketoacidosis) Patient Disposition: Admitted As Inpatient Discharge Instructions Interventions: ED Discharge Assessment Last Done: 06/02/23 13:12
[2023-06-02 15:32] LABS: Appearance Urine Clear (Clear); Bilirubin Urine Negative (Negative); Blood Urine Negative (Negative); Color Urine Yellow; Glucose Urine UA 3+ (Negative); Ketones Urine Negative (Negative); Leukocyte Esterase Urine Negative (Negative); Nitrite Urine Negative (Negative); Protein Urine Negative (Negative); Specific Gravity Urine 1.023 (1.000-1.030); Urobilinogen Urine Negative (Negative); pH Urine 6.5 (4.5-7.5)
[2023-06-02] MEDS: PENDING D5 1/2NS+20mEq KCL IVF SCH ×2 (16:22→18:21)
[2023-06-02] MEDS: INSULIN ASPART PER UNIT CHARGE SC SCH ×2 (17:19→19:16)
[2023-06-02 17:42] LABS: BUN Creatinine Ratio 16.3 (10-20); Calcium 8.3 mg/dl (8.6-10.3); Creatinine Clr Calc Pharmacy 88.2 ml/min; Est GFR (African American) 96.1 ml/min; Est GFR (Non-African American) 82.9 ml/min; Magnesium 1.7 mg/dl (1.7-2.4); Phosphorus 1.3 mg/dl (2.5-4.9); Potassium 3.1 mmol/L (3.5-5.1)
[2023-06-02] MEDS ORDERED: POTASSIUM PHOS 3 MMOL/1 ML INFUSION IV ONE (17:48)
[2023-06-02] MEDS ORDERED: POTASSIUM CHLORIDE CRTAB 20 MEQ TABCR PO ONE (17:49)
[2023-06-02] MEDS ORDERED: POTASSIUM PHOSPHATE 21 MMOL in SODIUM CHLORIDE 0.9% 500 ML IV ONE (18:00)
[2023-06-02] MEDS ORDERED: POTASSIUM CHLORIDE PWD 20 MEQ PACK PO ONE (18:45)
[2023-06-02] MEDS: D5W AND 1/2NSS + 20MEQ KCL 20 MEQ/1,000 ML BAG IV SCH (19:48)
[2023-06-02 20:39] LABS: BUN Creatinine Ratio 13.6 (10-20); Calcium 8.2 mg/dl (8.6-10.3); Est GFR (African American) 90.4 ml/min; Magnesium 1.6 mg/dl (1.7-2.4); Phosphorus 1.7 mg/dl (2.5-4.9); Potassium 3.5 mmol/L (3.5-5.1)
[2023-06-03 00:57] LABS: Calcium 7.4 mg/dl (8.6-10.3); Creatinine Clr Calc Pharmacy 86.5 ml/min; Est GFR (African American) 93.7 ml/min; Est GFR (Non-African American) 80.9 ml/min; Magnesium 1.5 mg/dl (1.7-2.4); Phosphorus 2.6 mg/dl (2.5-4.9); Potassium 3.4 mmol/L (3.5-5.1)
[2023-06-03] MEDS: D5W AND 1/2NSS + 20MEQ KCL 20 MEQ/1,000 ML BAG IV SCH ×2 (02:59→10:55)
[2023-06-03 04:51] LABS: Hematocrit (blood only) 27.6 % (42.0-52.0); Hemoglobin 9.8 g/dl (14.0-18.0); Mean Corpuscular Hemoglobin 32.1 pg (25.0-34.0); Mean Corpuscular Hgb Conc 35.5 g/dL (32.0-36.0); Mean Corpuscular Volume 90.5 fL (80.0-100.0); Mean Platelet Volume 14.8 fL (9.4-12.4); Platelet Count 65 K/uL (130-400); RDW Standard Deviation 45.4 fL (36.4-46.3); Red Blood Count 3.05 M/uL (4.70-6.10); White Blood Count 5.11 K/ul (4.8-10.8)
[2023-06-03 05:10] LABS: Albumin Level 3.3 gm/dl (3.4-5.0); BUN Creatinine Ratio 11.2 (10-20); Bilirubin Direct 0.2 mg/dl (0-0.2); Calcium 7.6 mg/dl (8.6-10.3); Creatinine Clr Calc Pharmacy 88.2 ml/min; Est GFR (African American) 96.1 ml/min; Est GFR (Non-African American) 82.9 ml/min; Magnesium 1.5 mg/dl (1.7-2.4); Phosphorus 2.3 mg/dl (2.5-4.9); Potassium 3.4 mmol/L (3.5-5.1); Total Protein 5.9 gm/dl (6.0-8.3)
[2023-06-03 07:30] LABS: Estimated Average Glucose 315 mg/dl; Hemoglobin A1C 12.6 % (4.5-5.6)
[2023-06-03] MEDS ORDERED: LANTUS PER UNIT CHARGE SC SCH (08:00)
[2023-06-03 08:42] LABS: BUN Creatinine Ratio 10.6 (10-20); Calcium 7.3 mg/dl (8.6-10.3); Creatinine Clr Calc Pharmacy 93.1 ml/min; Est GFR (Non-African American) 87.2 ml/min; Magnesium 1.4 mg/dl (1.7-2.4); Phosphorus 1.9 mg/dl (2.5-4.9); Potassium 3.4 mmol/L (3.5-5.1)
[2023-06-03] MEDS: TAMSULOSIN HCL 0.4 MG CAP PO SCH (08:44)
[2023-06-03] MEDS: INSULIN ASPART PER UNIT CHARGE SC SCH ×4 (08:44→20:41)
[2023-06-03] MEDS: ASPIRIN 81 MG ECTAB PO SCH (08:44)
--- NOTE | 2023-06-03 11:15 | Hospitalist Progress Note ---
Date of Service June 03, 2023 Assessment & Plan (1) Hypertension: (2) Dyslipidemia: (3) Type 2 diabetes mellitus: (4) Hyperosmolar hyperglycemic state (HHS): Plan 62 year old presented with nausea and chills Reported he did not eat much after his chemo on Monday. Hence had not been taking any of his antidiabetics or insulin Reports he takes Basaglar 70U qAM but usually increases to BID for a few days after his chemo session as his blood glucose usually goes up a lot after that. He also takes novolog 45U with meals and metformin 1g bid On presentation; glucose 902. Anion GAP was 13, pH was 7.42, Serum osm 318, Bicarb was 22 These suggests more development of HHS HbA1c is 12.6 Patient was started on insulin drip and IVF per protocol He is being transitioned to sq insulin today Glycemic pharm on board coordinating this. Discussed with Pharm. Will give more long acting insulin today paraeducator consultation placed Will monitor his glycemic control. He reports he follows with a diabetics dr May defer any adjustment of home dose to his drs. Needs endocrinology follow up Diabetes is poorly controlled. I provided DM education. 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 Patient was having back pain and seen by orthopedic surgeon found to have multiple lesions in lumbar vertebral body Official diagnosis with MRI showing multiple lytic lesions Follows with Dr. Samayoa Last chemotherapy May 23; current regimen is cabazitaxel every 3 weeks which was started on November 2022; Takes tramadol PRN; continue HTN: Was taking enalapril and HCTZ; was discontinued in November 2022 PRN Hydralazine with parameters Disposition: PCP: Dr. Posey Code Status: Full Code VTE Prophylaxis: teds and SCDS for now I spent a total of 50 minutes coordinating, documenting and providing care for this patient excluding time spent in performance of separately billed services Admission and Anticipated Discharge Date Admission Date: June 02, 2023 Subjective Patient seen and examined Reports nausea is resolved Denied any vomiting, abd pain, diarrhea Reports feeling better Denied cough, chest pain, SOB, dizziness, fever, chills, dysuria, freq, urgency Physical Exam Constitutional: + well hydrated; no acute distress Eyes: PERRL, conjunctivae normal, anicteric sclerae ENMT: external ear and nose normal, oropharynx normal Respiratory: normal respiratory effort, lungs clear to auscultation Cardiovascular: Rate/Rhythm: regular rate and regular rhythm S1 S2 Gastrointestinal (Abdomen): normal bowel sounds, soft, nontender, no hepatosplenomegaly Musculoskeletal: no cyanosis or clubbing, extremities motor strength 5/5 Neurologic: PERRL, EOMI, accommodation nl, no face palsy, no dysarthria Psychiatric: A+Ox3, euthymic affect Results & Data Results & Data Vital Signs (Past 12 Hours) Vital Signs Temp Pulse Pulse Resp BP Pulse Ox O2 Del Method 06/03/23 07:32 36.8 C 72 20 154/85 H 93 Room Air 06/03/23 03:02 36.9 C 82 18 130/78 94 Room Air 06/03/23 00:31 79 Laboratory Results Abnormal lab results 06/02/23 06/02/23 06/02/23 Range/Units 14:02 15:02 15:56 RBC (4.70-6.10) M/uL Hgb (14.0-18.0) g/dl Hct (42.0-52.0) % Plt Count (130-400) K/uL MPV (9.4-12.4) fL VBG pH (7.36-7.41) Potassium (3.5-5.1) mmol/L Chloride (98-107) mmol/L Glucose (70-99(Fasting)) mg/dl POC Glucose 595 H* 526 H* 408 H* (70-99) mg/dl Hemoglobin A1c (4.5-5.6) % Calcium (8.6-10.3) mg/dl Phosphorus (2.5-4.9) mg/dl Magnesium (1.7-2.4) mg/dl Total Protein (6.0-8.3) gm/dl Albumin (3.4-5.0) gm/dl Urine Glucose (UA) (Negative) 06/02/23 06/02/23 06/02/23 Range/Units 16:44 16:59 18:00 RBC (4.70-6.10) M/uL Hgb (14.0-18.0) g/dl Hct (42.0-52.0) % Plt Count (130-400) K/uL MPV (9.4-12.4) fL VBG pH (7.36-7.41) Potassium 3.1 L (3.5-5.1) mmol/L Chloride (98-107) mmol/L Glucose 335 H* (70-99(Fasting)) mg/dl POC Glucose 326 H* 275 H (70-99) mg/dl Hemoglobin A1c (4.5-5.6) % Calcium 8.3 L (8.6-10.3) mg/dl Phosphorus 1.3 L* (2.5-4.9) mg/dl Magnesium (1.7-2.4) mg/dl Total Protein (6.0-8.3) gm/dl Albumin (3.4-5.0) gm/dl Urine Glucose (UA) (Negative) 06/02/23 06/02/23 06/02/23 Range/Units 18:01 18:56 19:58 RBC (4.70-6.10) M/uL Hgb (14.0-18.0) g/dl Hct (42.0-52.0) % Plt Count (130-400) K/uL MPV (9.4-12.4) fL VBG pH (7.36-7.41) Potassium (3.5-5.1) mmol/L Chloride (98-107) mmol/L Glucose 147 H (70-99(Fasting)) mg/dl POC Glucose 262 H 209 H (70-99) mg/dl Hemoglobin A1c (4.5-5.6) % Calcium 8.2 L (8.6-10.3) mg/dl Phosphorus 1.7 L (2.5-4.9) mg/dl Magnesium 1.6 L (1.7-2.4) mg/dl Total Protein (6.0-8.3) gm/dl Albumin (3.4-5.0) gm/dl Urine Glucose (UA) (Negative) 06/02/23 06/02/23 06/02/23 Range/Units 19:58 19:59 21:03 RBC (4.70-6.10) M/uL Hgb (14.0-18.0) g/dl Hct (42.0-52.0) % Plt Count (130-400) K/uL MPV (9.4-12.4) fL VBG pH 7.45 H (7.36-7.41) Potassium (3.5-5.1) mmol/L Chloride (98-107) mmol/L Glucose (70-99(Fasting)) mg/dl POC Glucose 152 H 165 H (70-99) mg/dl Hemoglobin A1c (4.5-5.6) % Calcium (8.6-10.3) mg/dl Phosphorus (2.5-4.9) mg/dl Magnesium (1.7-2.4) mg/dl Total Protein (6.0-8.3) gm/dl Albumin (3.4-5.0) gm/dl Urine Glucose (UA) (Negative) 06/02/23 06/02/23 06/02/23 Range/Units 22:03 23:06 Unknown RBC (4.70-6.10) M/uL Hgb (14.0-18.0) g/dl Hct (42.0-52.0) % Plt Count (130-400) K/uL MPV (9.4-12.4) fL VBG pH (7.36-7.41) Potassium (3.5-5.1) mmol/L Chloride (98-107) mmol/L Glucose (70-99(Fasting)) mg/dl POC Glucose 159 H 185 H (70-99) mg/dl Hemoglobin A1c (4.5-5.6) % Calcium (8.6-10.3) mg/dl Phosphorus (2.5-4.9) mg/dl Magnesium (1.7-2.4) mg/dl Total Protein (6.0-8.3) gm/dl Albumin (3.4-5.0) gm/dl Urine Glucose (UA) 3+ H (Negative) 06/03/23 06/03/23 06/03/23 Range/Units 00:07 00:26 00:28 RBC (4.70-6.10) M/uL Hgb (14.0-18.0) g/dl Hct (42.0-52.0) % Plt Count (130-400) K/uL MPV (9.4-12.4) fL VBG pH 7.44 H (7.36-7.41) Potassium 3.4 L (3.5-5.1) mmol/L Chloride 108 H (98-107) mmol/L Glucose 192 H (70-99(Fasting)) mg/dl POC Glucose 185 H (70-99) mg/dl Hemoglobin A1c (4.5-5.6) % Calcium 7.4 L (8.6-10.3) mg/dl Phosphorus (2.5-4.9) mg/dl Magnesium 1.5 L (1.7-2.4) mg/dl Total Protein (6.0-8.3) gm/dl Albumin (3.4-5.0) gm/dl Urine Glucose (UA) (Negative) 06/03/23 06/03/23 06/03/23 Range/Units 01:06 02:58 04:36 RBC 3.05 L (4.70-6.10) M/uL Hgb 9.8 L (14.0-18.0) g/dl Hct 27.6 L (42.0-52.0) % Plt Count 65 L (130-400) K/uL MPV 14.8 H (9.4-12.4) fL VBG pH (7.36-7.41) Potassium (3.5-5.1) mmol/L Chloride (98-107) mmol/L Glucose (70-99(Fasting)) mg/dl POC Glucose 204 H 217 H (70-99) mg/dl Hemoglobin A1c (4.5-5.6) % Calcium (8.6-10.3) mg/dl Phosphorus (2.5-4.9) mg/dl Magnesium (1.7-2.4) mg/dl Total Protein (6.0-8.3) gm/dl Albumin (3.4-5.0) gm/dl Urine Glucose (UA) (Negative) 06/03/23 06/03/23 06/03/23 Range/Units 04:36 04:36 04:36 RBC (4.70-6.10) M/uL Hgb (14.0-18.0) g/dl Hct (42.0-52.0) % Plt Count (130-400) K/uL MPV (9.4-12.4) fL VBG pH (7.36-7.41) Potassium 3.4 L (3.5-5.1) mmol/L Chloride (98-107) mmol/L Glucose 211 H (70-99(Fasting)) mg/dl POC Glucose (70-99) mg/dl Hemoglobin A1c 12.6 H (4.5-5.6) % Calcium 7.6 L (8.6-10.3) mg/dl Phosphorus 2.3 L (2.5-4.9) mg/dl Magnesium 1.5 L (1.7-2.4) mg/dl Total Protein 5.9 L (6.0-8.3) gm/dl Albumin 3.3 L (3.4-5.0) gm/dl Urine Glucose (UA) (Negative) 06/03/23 06/03/23 06/03/23 Range/Units 05:07 06:48 07:02 RBC (4.70-6.10) M/uL Hgb (14.0-18.0) g/dl Hct (42.0-52.0) % Plt Count (130-400) K/uL MPV (9.4-12.4) fL VBG pH (7.36-7.41) Potassium (3.5-5.1) mmol/L Chloride (98-107) mmol/L Glucose (70-99(Fasting)) mg/dl POC Glucose 219 H 234 H 226 H (70-99) mg/dl Hemoglobin A1c (4.5-5.6) % Calcium (8.6-10.3) mg/dl Phosphorus (2.5-4.9) mg/dl Magnesium (1.7-2.4) mg/dl Total Protein (6.0-8.3) gm/dl Albumin (3.4-5.0) gm/dl Urine Glucose (UA) (Negative) 06/03/23 06/03/23 06/03/23 Range/Units 08:07 09:02 10:20 RBC (4.70-6.10) M/uL Hgb (14.0-18.0) g/dl Hct (42.0-52.0) % Plt Count (130-400) K/uL MPV (9.4-12.4) fL VBG pH (7.36-7.41) Potassium 3.4 L (3.5-5.1) mmol/L Chloride 108 H (98-107) mmol/L Glucose 260 H (70-99(Fasting)) mg/dl POC Glucose 316 H* 360 H* (70-99) mg/dl Hemoglobin A1c (4.5-5.6) % Calcium 7.3 L (8.6-10.3) mg/dl Phosphorus 1.9 L (2.5-4.9) mg/dl Magnesium 1.4 L (1.7-2.4) mg/dl Total Protein (6.0-8.3) gm/dl Albumin (3.4-5.0) gm/dl Urine Glucose (UA) (Negative) 06/03/23 06/03/23 06/03/23 Range/Units 11:01 12:04 13:07 RBC (4.70-6.10) M/uL Hgb (14.0-18.0) g/dl Hct (42.0-52.0) % Plt Count (130-400) K/uL MPV (9.4-12.4) fL VBG pH (7.36-7.41) Potassium (3.5-5.1) mmol/L Chloride (98-107) mmol/L Glucose (70-99(Fasting)) mg/dl POC Glucose 332 H* 293 H 273 H (70-99) mg/dl Hemoglobin A1c (4.5-5.6) % Calcium (8.6-10.3) mg/dl Phosphorus (2.5-4.9) mg/dl Magnesium (1.7-2.4) mg/dl Total Protein (6.0-8.3) gm/dl Albumin (3.4-5.0) gm/dl Urine Glucose (UA) (Negative) (1) Hypertension Hypertension type: essential hypertension Qualified Code(s): I10 - Essential (primary) hypertension
--- NOTE | 2023-06-03 14:06 | Pharmacy Report ---
Pharmacy Glycemic Short Note 2 - Date of Service June 03, 2023 - Glycemic Short BSG Results (Last 24 hours): 06/02/23 06/02/23 06/02/23 14:02 15:02 15:56 Glucose POC Glucose 595 H* 526 H* 408 H* 06/02/23 06/02/23 06/02/23 16:44 16:59 18:00 Glucose 335 H* POC Glucose 326 H* 275 H 06/02/23 06/02/23 06/02/23 18:01 18:56 19:58 Glucose 147 H POC Glucose 262 H 209 H 06/02/23 06/02/23 06/02/23 19:59 21:03 22:03 Glucose POC Glucose 152 H 165 H 159 H 06/02/23 06/03/23 06/03/23 23:06 00:07 00:28 Glucose 192 H POC Glucose 185 H 185 H 06/03/23 06/03/23 06/03/23 01:06 02:58 04:36 Glucose 211 H POC Glucose 204 H 217 H 06/03/23 06/03/23 06/03/23 05:07 06:48 07:02 Glucose POC Glucose 219 H 234 H 226 H 06/03/23 06/03/23 06/03/23 08:07 09:02 10:20 Glucose 260 H POC Glucose 316 H* 360 H* 06/03/23 06/03/23 06/03/23 11:01 12:04 13:07 Glucose POC Glucose 332 H* 293 H 273 H OUTPATIENT ANTIDIABETIC REGIMEN: * Basaglar 70 units daily at HS, novolog 50 units BID, metformin 1 g bid HbA1c: 12.6% ASSESSMENT: 06/03/23: * Patient continues on insulin drip this morning. Drip rate was down to 3 units/hr overnight but as BSGs trended up above 300 mg/dl food intake and currently drip is running at 7.1 units/hr. * Anion gap is closed and DKA is resolved. * Lantus 45 units was given this morning. Dosing was reduced by around 35% from home dose. Will give patient an additional 20 units now to help transition off the insulin drip. * Novolog parameters continued with stress of 3. 06/02/23: * 62 year old admitted with DKA, started on insulin infusion per protocol. Hx of stage IV prostate cancer with mets to bone. Last treatment session was last Monday. Per notes, patient with chills, nausea and has not taken any of his medications including insulin. * Records indicating patient has followed with [facility] - last visit 05/2022. * Will continue with insulin drip per protocol until labs normalize. PLAN FOR INPATIENT GLYCEMIC CONTROL: * Hold outpatient oral diabetes medications * Basal insulin * Lantus 45 units x1 this AM and 20 units x1 this afternoon * Lantus 65 units SQ QAM starting tomorrow * Bolus insulin * NovoLog per scale ACHS or Q6hrs while NPO * Goal Range: Low 110 mg/dL - High 140 mg/dL * Correction Factor: 20 mg/dL/unit * Nutritional / Prandial insulin per carb ratio of 1 unit per 6 grams CHO consumed
[2023-06-03] MEDS ORDERED: POTASSIUM CHLORIDE CRTAB 20 MEQ TABCR PO STA (14:12)
[2023-06-03] MEDS ORDERED: LANTUS PER UNIT CHARGE SC ONE (14:30)
[2023-06-03] MEDS: INSULIN REGULAR 250 UNITS in SODIUM CHLORIDE 0.9% 247.5 ML IV SCH (14:34)
[2023-06-03] MEDS ORDERED: POTASSIUM CHLORIDE PWD 20 MEQ PACK PO ONE (14:50)
[2023-06-03] MEDS: PLASMA-LYTE A 1,000 ML IV SCH (15:44)
[2023-06-04] MEDS: INSULIN ASPART PER UNIT CHARGE SC SCH ×4 (00:09→11:42)
[2023-06-04] MEDS: PLASMA-LYTE A 1,000 ML IV SCH (03:38)
[2023-06-04 06:36] LABS: BUN Creatinine Ratio 8.8 (10-20); Calcium 7.4 mg/dl (8.6-10.3); Creatinine Clr Calc Pharmacy 95.5 ml/min; Est GFR (African American) 105.1 ml/min; Est GFR (Non-African American) 90.6 ml/min; Magnesium 1.6 mg/dl (1.7-2.4); Phosphorus 2.4 mg/dl (2.5-4.9); Potassium 3.4 mmol/L (3.5-5.1)
[2023-06-04 06:47] LABS: Hematocrit (blood only) 26.5 % (42.0-52.0); Hemoglobin 9.3 g/dl (14.0-18.0); Mean Corpuscular Hemoglobin 32.2 pg (25.0-34.0); Mean Corpuscular Hgb Conc 35.1 g/dL (32.0-36.0); Mean Corpuscular Volume 91.7 fL (80.0-100.0); Platelet Count 52 K/uL (130-400); Platelet Estimate Decreased (Normal); RDW Coefficient of Variation 14.7 % (11.5-14.5); RDW Standard Deviation 48.2 fL (36.4-46.3); Red Blood Count 2.89 M/uL (4.70-6.10); White Blood Count 3.49 K/ul (4.8-10.8)
[2023-06-04] MEDS: ASPIRIN 81 MG ECTAB PO SCH (08:19)
[2023-06-04] MEDS: TAMSULOSIN HCL 0.4 MG CAP PO SCH (08:19)
[2023-06-04] MEDS ORDERED: POTASSIUM CHLORIDE PWD 20 MEQ PACK PO ONE (08:30)
[2023-06-04] MEDS ORDERED: LANTUS PER UNIT CHARGE SC SCH (09:00)
[2023-06-04] MEDS ORDERED: MAGNESIUM OXIDE 400 MG TAB PO SCH (11:45)
--- NOTE | 2023-06-04 11:48 | Discharge Summary ---
Date of Service June 04, 2023 Admission HPI Per Admitting Provider Mr. Beavers is a 62 year old male that presents to the ED today with serum glucose level of 902. He is being followed by Dr. Samayoa for stage IV prostate cancer with mets to bone. His last treatment was last Monday. Since then, he was having some chills and nausea and has not taken any of his medications; including his Insulin. It does not appear that the patient is toxic; he is hemodynamically stable. Will rule out infectious cause; however, believe he will correct quick quickly as it appears his symptoms are from noncompliance rather than an infectious, acidotic, or hypovolemic origin. No leukocytosis, does not appear toxic. Osmoloity 318, AG 13, Na+ 127; correct Na 139. Glucose level 902; goal 150-250. Serum Sodium 127; corrected Sodium 139. Current chemotherapy regimen: Cabazitaxel 20 mg/m every 3 weekly started on 12/26/2022. Treatment has been delayed because of low Platelet count and he was not feeling well and he declined for prophylactic Pegfilgrastim. In February, his dose was adjusted and reduced due to side effects and intolerance. He underwent decompressive surgery with fusion of L3-L5 vertebral body for metastatic prostate cancer in November 2016. Final pathology at that time was metastatic adenocarcinoma of the prostate. In November 2016; PSA level was 1423. He received 6 cycles of chemotherapy with Taxotere which was completed in March 2017. Also started him on Lupron at the same time in December 2016. Also started on Zometa every monthly at the same time. Patient denies BRAVO, dizziness, SOB, chest pain, palpitations, vomiting, diarrhea, urinary changes, visual changes, auditory changes, recent falls or trauma. He was taking Atenolol and HCTZ and both were stopped in November. Patient will be admitted for further evaluation and management. Please see A/P for further details. Admission Exam Per Admitting Provider General Appearance:Moderately built and nourished, no apparent distress Head: normocephalic, Atraumatic Eyes: normal inspection, EOMI Neck: supple, Trachea midline Respiratory/Chest: Normal breath sounds, CTA, No accessory muscle use, R chemo port Cardiovascular: S1, S2, No murmur Abdomen/GI:Soft, Non tender, Bowel sounds present Extremities/Musculoskeletal:normal inspection, no edema Neurologic/Psych:AAOX3, grossly no focal neurological deficits Skin: normal color, warm Principal Diagnosis HHS Poorly controlled DM Discharge Exam Constitutional + well hydrated; no acute distress Eyes PERRL, conjunctivae normal, anicteric sclerae ENMT external ear and nose normal, oropharynx normal Respiratory normal respiratory effort, lungs clear to auscultation Cardiovascular Rate/Rhythm: regular rate and regular rhythm S1 S2 Gastrointestinal (Abdomen) normal bowel sounds, soft, nontender, no hepatosplenomegaly Musculoskeletal no cyanosis or clubbing, extremities motor strength 5/5 Neurologic PERRL, EOMI, accommodation nl, no face palsy, no dysarthria Psychiatric A+Ox3, euthymic affect Discharge Data Allergies Allergy/AdvReac Type Severity Reaction Status Date / Time No Known Allergies Allergy Unverified 08/24/22 20:08 Consultations 06/02/23 11:41 ED Decision to Admit Stat Hospital Course (1) Hypertension: (2) Dyslipidemia: (3) Type 2 diabetes mellitus: (4) Hyperosmolar hyperglycemic state (HHS): Plan 62 year old presented with nausea and chills Reported he did not eat much after his chemo on Monday. Hence had not been taking any of his antidiabetics or insulin Reports he takes Basaglar 70U qAM but usually increases to BID for a few days after his chemo session as his blood glucose usually goes up a lot after that. He also takes novolog 45U with meals and metformin 1g bid On presentation; glucose 902. Anion GAP was 13, pH was 7.42, Serum osm 318, Bicarb was 22 These suggests more development of HHS HbA1c is 12.6 Patient was started on insulin drip and IVF per protocol Blood glucose was controlled and all symptoms resolved He was transitioned to sq insulin DM education was provided He reports he has appointment with his Diabetes Dr on Monday Diabetes is poorly controlled. I notified patient that when his appetite is poor, he should contact his Dr who may advise him on dose adjustment of his antidiabetics especially long acting insulin, instead of stopping all antidiabetics No adjustments made to his home insulin regimen at this time Stage IV prostate CA with bone mets: Diagnosed 09/2016. Patient was having back pain and seen by orthopedic surgeon found to have multiple lesions in lumbar vertebral body Official diagnosis with MRI showing multiple lytic lesions Follows with Dr. Samayoa Last chemotherapy May 23; current regimen is cabazitaxel every 3 weeks which was started on November 2022; Takes tramadol PRN; continue HTN: Was taking enalapril and HCTZ; was discontinued in November 2022 PRN Hydralazine with parameters Total Time Total Time Spent Total Time Spent (In Minutes): 40 Total Time Includes: Examination of the Patient, Discharge Planning and Medication Reconciliation Discharge Plan Discharge Items Patient Disposition: Home - Self-Care Reason For Visit: Nausea, elevated blood glucose Discharge Diagnosis: HHS (Hyperosmolar Hyperglycemic Syndrome) Poorly controlled Diabetes mellitus Activity: Resume your previous activity Non-emergency contact: Primary Care Provider Call non-emergency contact if: you have any medication questions and your symptoms worsen Follow-up/Referrals: Stephen Posey MD [Primary Care Provider] - Diet: Carb Consistent or DM2 and Heart Healthy Addtl Attending Provider Instructions: Mr Beavers You came to the hospital due nausea and feeling ills and had not been taking your antidiabetics for a few days. You were found to have significantly elevated blood glucose. You were managed with insulin drip and IV fluids. Your symptoms resolved. Your hemoglobin A1c was elevated at 12.6. Please ensure follow up with your Steel Fitter. Please adhere to dietary management of your diabetes as well. Ensure follow up with your Family doctor. It was a pleasure taking care of you. Pending Studies at Discharge: No Stand-Alone Forms: My [facility] Swapbox, Smoking Cessation Medications and DC Order Prescriptions: Continued insulin glargine [Basaglar KwikPen U-100 Insulin] 100 unit/mL (3 mL) insulin pen 70 unit SUBCUT HS Qty: 65 1RF Rx Instructions: Reports he takes in the morning usually. After steroid with chemo, takes bid for a few days (DME) blood-glucose meter [Accu-Chek Guide Glucose Meter] misc See Dose Instructions .ROUTE .MEDSUPPLY Qty: 1 Rx Instructions: As directed almotriptan malate 12.5 mg tablet 12.5 mg PO .COMPLEX PRN (Reason: Migraine Headache) Patient Comments: 12.5 mg PO Take at onset of migraine. May repeat in 2 hours. MAX 2 DOSES/24 HOURS/ NO MORE THEN 3 DAYS PER WEEK; Rx Instructions: 12.5 mg PO Take at onset of migraine. May repeat in 2 hours. MAX 2 DOSES/24 H OURS/ NO MORE THEN 3 DAYS PER WEEK; (DME) lancets [Accu-Chek Fastclix Lancet Drum] Misc See Rx Instructions .ROUTE .MEDSUPPLY Qty: 50 Rx Instructions: Test blood sugars 4 times a day (DME) pen needle, diabetic [BD Ultra-Fine Mini Pen Needle] 31 gauge x 3/16" needle See Rx Instructions .ROUTE .MEDSUPPLY Qty: 400 3RF Rx Instructions: test 4 times daily (DME) Accu-Chek Guide test strips Strip See Rx Instructions .ROUTE .MEDSUPPLY Rx Instructions: Test blood sugars 2 times a day aspirin [Ecotrin Low Strength] 81 mg Tablet,Delayed Release (Dr/Ec) 81 mg PO DAILY tamsulosin [Flomax] 0.4 mg Capsule 0.4 mg PO DAILY potassium chloride 10 mEq capsule, extended release 20 meq PO AMPM acetaminophen [Tylenol] 325 mg Tablet 650 mg PO QID PRN (Reason: Fever Or Pain) tramadol 50 mg tablet 50 mg PO Q6H PRN (Reason: Pain) metformin 1,000 mg tablet 1,000 mg PO BIDM ondansetron HCl 8 mg tablet 8 mg PO Q8H PRN (Reason: Nausea) insulin aspart U-100 [Novolog FlexPen U-100 Insulin] 100 unit/mL (3 mL) insulin pen 45 unit SQ BIDWMEAL Rx Instructions: INJECT 40-45 UNITS UNDER THE SKIN, TWO TIMES DAILY WITH MORNING AND EVENING MEALS. INJECT 70 UNITSWITH EACH DEXAMETHASONE DOSE ( TWICE DAILY FOR THREE DAYS WITH CHEMO). Discharge Orders: Discharge Order (Routine); Ordered 06/04/23 Ordered By: Karlee Siegel Admission Data Admit Date/Time: 06/02/23 12:01 Attending Provider: Karlee Siegel I. Admit Provider: Miguel Beebe Primary Care Provider: Stephen Posey Other Providers: Miguel Beebe Other Interventions: Discharge Summary Assessment (RN) Last Done: 06/04/23 12:09
[2023-06-05] MEDS ORDERED: LANTUS PER UNIT CHARGE SC SCH (09:00)
--- NOTE | 2023-06-06 07:57 | Coding Query ---
To promote full compliance with coding requirements relating to patient care, provider participation is requested in all cases of pastry supervisor uncertainty. Please assist us with the question(s) below: Coding Question(s): The diagnosis(es) below was documented in the (pastry supervisor fill out source document ie H&P, progress notes, etc.) then subsequently fell off all further documentation. Please indicate if it is still a possible diagnosis or ruled out. Physician's Response(s): PANCYTOPENIA secondary to chemotherapy ( ) Diagnosed and POA ( ) Diagnosed and not POA ( ) Ruled out ( x ) Other (please specify) Pancytopenia likely due to chemotherapy MTDD
== END 2023-06-04 12:57 | disposition home or self-care (01) | DRG 637 ==
LOC: ED 09:50 → 2S 12:01 → SUATTDRO 12:01 → 2S 13:12